=== PATIENT | male | born 2000 | race Caucasian/White ===

== ENCOUNTER 2023-04-30 08:00 | Outpatient (RCR) | payer OTHER, SELFPAY ==
--- NOTE | 2023-04-30 09:00 | BH.SGPN.GN ---
Behaviors/Verbalizations/Mental Status: [] Eye contact is good. Motor activity is appropriate. Appearance is casual. Speech is Appropriate. Mood is anxious. Affect is congruent. Thoughts are linear and logical. No evidence of psychosis. Reviewed daily check in sheet and no reports of suicidal ideations or intent. Client Response/Progress/Benefit: [] Pt was an active participant in group discussion. Attentive. This was pt's first day in IOP. Daily symptom tracker notes 3/5 for anxiety and 2/5 for depression and irritability. Also reports 1/5 for self-harm urges. He introduced himself to the group and shared that he entered [facility] to work on his anxiety and depression. Discussed the the impact of his social anxiety and depression on his life. Visibly anxious however was able to provided appropriate feedback to peers. Limited progress as this was his first day in IOP. Benefited from group support, encouragement, and feedback. Group welcomed him to the program, empathized with his struggles, and provided advice for his first day/week in IOP. Will continue in IOP to prevent decompensation, stabilize mood, and improve function. Narrative Note: []
--- NOTE | 2023-04-30 09:08 | BH.COMM_ITS ---
Communication Note Communication with Client Communication Note: Pt completed initial paperwork. No significant changes since pre-admission screening. Completed [place] Suicide Severity Rating Scale. Per CSSRS client is high risk due to recent suicide attempt when he attempted to suffocate himself with a pillow 4 weeks ago. Pt states he hasn?t had suicidal thoughts in three and a half weeks. Feels able to maintain safety. Pt states his dad does own a gun, but pt knows his dad keeps it locked up. Pt does not know where the gun safe is and does not know how to access it. Therapist provided lethal means counseling. Pt denies access to lethal items. Consulted with Dr. Raymond with plan to admit to IOP with hx of F33.2.
--- NOTE | 2023-04-30 10:15 | BH.SGPN.GN ---
Behaviors/Verbalizations/Mental Status: []Pt alert and oriented, casually dressed and groomed. Eye contact good. Motor activity appropriate. Speech within normal limits. Affect congruent, mood stressed. Thoughts linear, logical, no signs of hallucinations or delusions. Client Response/Progress/Benefit: []Pt receptive to session AEB contributing to discussion, as well listening attentively to others, and taking notes. Worked with group to brainstorm the positive and negative aspects of stress on physical and mental health. Group did well to identify the benefits of stress as well as the impact of distress on performance, relationships, and mental health. Pt identified their personal top stressors as: poor time management with his hobbies, unemployment, and school. Pt seemed to benefit from increased awareness of current stressors and impact stress has on mental health. First day of IOP tx. Recommended to continue IOP tx to prevent decompensation, improve daily functioning, and gain healthy coping skills. ? Narrative Note: []
--- NOTE | 2023-04-30 11:15 | BH.SGPN.GN ---
Behaviors/Verbalizations/Mental Status: []Eye contact is good. Motor activity is appropriate. Appearance is casual. Speech is Appropriate. Mood is anxious and dysthymic. Affect is congruent. Thoughts are linear and logical. No evidence of psychosis. Client Response/Progress/Benefit: []Pt first day in IOP tx, was an active participant in group discussions and experiential activity. Attentive during psychoeducation on the 4 A's (Avoid, adapt, alter, accept) of coping with stress as well as strategies to identify stressors in which one has no control, little control, or a great deal of control over. Shared that he would benefit most from working on avoid in regards to coping with stress of having difficulties balancing enjoyable activities with completing responsibilities. Was able to identify the connection between the experimental activity and utilization of stress management skills. Benefited from increased awareness of stress management strategies. Will continue in IOP to maintain safety, prevent decompensation, and to increase healthy coping skills. Narrative Note: []
== END 2023-05-01 23:59 ==
LOC: BHIOP 08:00
PROVIDERS: Referring Provider Psychiatry & Neurology Psychiatry; Visit Provider Psychiatry & Neurology Psychiatry
DX: F33.2 Major depressive disorder, recurrent severe without psychotic features (principal)
CPT/HCPCS: S9480; 90853

== ENCOUNTER 2023-05-04 07:20 | Outpatient (RCR) | payer OTHER, SELFPAY ==
--- NOTE | 2023-05-04 09:00 | BH.SGPN.GN ---
Behaviors/Verbalizations/Mental Status: [] Eye contact is good. Motor activity is appropriate. Appearance is casual. Speech is Appropriate. Mood is anxious. Affect is full. Thoughts are linear and logical. No evidence of psychosis. Reviewed daily check in sheet and no reports of suicidal ideations or intent. Client Response/Progress/Benefit: [] Pt was an active participant in group discussions. Attentive. Daily symptom tracker notes 25 for depression and 5 for anxiety. Emotion for today is tired. Shared mental health wins over the holiday stating that he managed through some very stressful and difficult situation without having a panic attack. I think I managed my anxiety OK. Appeared reluctant to verbalize this however insight that he utilized skills and reframed thoughts which was able to minimize the distress of his emotions. He shared stressors. Continues to struggles with anxiety, depression, and overall these continue to impact his functioning , however increase use of skills. Also benefits from group support and encouragement. Will continue in IOP to prevent decompensation, increase healthy coping, and improve functioning. Narrative Note: []
--- NOTE | 2023-05-04 10:10 | BH.SGPN.GN ---
ions/Mental Status: [] Eye contact is good. Motor activity is restless. Appearance is casual. Speech is Appropriate. Mood is anxious. Affect is congruent. Thoughts are linear and logical. No evidence of psychosis. Client Response/Progress/Benefit: [] Pt active participant AEB providing contributions throughout discussions and listened attentively to others. Participated in and was engaged during experiential activity. Engaged during interactive discussion on what failure means to the group in which peers identified that failure is ... not meeting expectations, not having a desired outcome, and not succeeding in a task. Group was able to identify how fear of failure can lead to inaction, complacency, pushing people away, poor self-care, and self-sabotage. Attentive during interactive discussion on the role that FOF plays in mental wellness, depression, anxiety, and growth. Able to connect the experiential activity to FOF. Benefited from increased awareness of how the role that FOF plays in mental health and decision-making. Will continue in IOP to decrease anxiety, increase emotion regulation, and prevent decompensation.
--- NOTE | 2023-05-04 11:15 | BH.SGPN.GN ---
Behaviors/Verbalizations/Mental Status: []Pt alert and oriented, casually dressed and groomed. Eye contact good. Motor activity appropriate. Speech within normal limits. Affect congruent, mood depressed. Thoughts linear, logical, no signs of hallucinations or delusions. Client Response/Progress/Benefit: [] Pt responded well to session, engaged in the experiential activity and attentive throughout group processing. Pt reported fear of failure has kept Pt from dating, riding a bike, and family events. Pt completed fear of failure worksheet and was able to identify thoughts and behaviors that reinforce personal fear of failure including self-isolation, perfectionism, and lack of confidence. Pt participated in group discussion regarding strategies to overcome fear of failure. Identified wanting to work on reminding himself that people do care about him. Appeared to benefit from increased knowledge of strategies to combat fear of failure and gaining self-awareness. Pt will continue IOP tx to prevent decompensation, improve daily functioning, and increase self-compassion. Narrative Note: []
--- NOTE | 2023-05-06 10:05 | BH.SGPN.GN ---
Behaviors/Verbalizations/Mental Status: [] Client alert and oriented, casually dressed and groomed. Eye contact good. Motor activity appropriate. Speech within normal limits. Affect congruent, mood anxious and euthymic. Thoughts linear, logical, no signs of hallucinations or delusions. Client Response/Progress/Benefit: [] Client was an active participant in activity and taking notes during group discussion and provided input in during group discussions.. Attentive during psychoeducation on coping skills, why people use unhealthy coping skills, and how to replace unhealthy coping skills. Group came up with list of negative coping skills that included substance use, avoidance, lashing out, and escaping from reality. Group discussed the effects of how negative coping skills can impact mental health in a negative way which included lack of positive supports. Client shared the importance internal and external coping skills. Benefited from increased understanding of unhealthy coping skills and the need for developing healthy interna and external coping skills. Client will continue IOP tx to increase positive self care, regulate emotions, and increase overall functioning. Narrative Note: []
--- NOTE | 2023-05-06 10:25 | BH.NA_ITS ---
Physical Data Vital Signs Pulse Rate: 84 Blood Pressure: 124/78 Height/Weight Height: 1.75 m Weight:: 104.326 kg Weight in Pounds: 230.0 lbs Current Medication Compliance Medication Compliance Do you take your medication as prescribed?: Yes Nutritional History Appetite Nutritional Instructions: Describe your appetite:: Fair Additional nutritional information:: Client states his routine for eating is 2 s mall meals a day and snacks in between. Client denies change in his appetite. Functional Assessment Sleep Pattern Describe any problems with sleeping: Client states he sleeps between 6-10 hours per night. Sensory/Communication Assess Vision Problems Do you have any vision problems?: Glasses Communication Problems Do you have difficulty understanding what people are saying?: No Medical Problems/History Gastrointestinal Conditions Gastrointestinal: Other (See comments) (IBS, GERD) Musculoskeletal Conditions Musculoskeletal: Other (See comments) (scolosis, skin excoriation disorder) Pain Assessment Do you have acute or chronic pain?: No Surgical History Surgical History Have you had any surgeries? If so, list type and date:: No Substance Abuse Substance Abuse Please describe substance abuse in the last 30 days:: Client denies alcohol, tobacco or substance use. Client states he drinks between 1 and 3 32oz caffeinated sodas per day. Mental Status Summary Mental Status Significant Findings/Observations on Appearance and Mood:: Client is alert and oriented x 4. Client is casually groomed. Client makes fair eye contact. Client's voice has normal rate and volume. Client has appropriate affect. Client makes logical associations. Client has normal processing. Client denies delusions/hallucinations. Client states he has some passive SI at times, but denies thoughts of methods since he talked to his counselor about SI in April. Suicide Assessment Suicidal Ideation Are you currently or have you been suicidal in the past?: Yes Suicidal Intentional Rating Scale (SIRS): Current suicidal thoughts/No plan/Contracts for safety (daily passive SI but denies intent/plan) Physician Notification Past Psychiatric History MH Treatment Hx Past Psychiatric Medications:: Prozac, Viibryd, Adderall, Abilify Age of first mental health symptoms: Client states he was first on medication for depression at age 16, but states he had symptoms many years prior. Client states he has had 2 suicide attempts in the past, hospitalization was not followed with either. Fall Risk Assessment Age Age: Less than 60 Mental Status Mental Status: Willing & able to ask for assistance when needed Physical Status Physical Status: No problems Impairments Impairments: None Elimination Elimination: Continent AND independent Gait or Balance Gait or Balance: Walks independently Hx of Falls History of falls in the past 6 months: No known history Medications/Substances Psychotropics:: Antidepressants Medications/substances used within the past 24 hours or ordered to administer: 1-2 of the medications/substances listed above Total Score Total Points:: 1 RN Summary of Impressions Impressions Recommendations Impressions: Psychiatric Issues: 1. Major depressive disorder, recurrent, severe without psychosis 2. Generalized anxiety disorder 3. 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 Rule out ADHD Level of Care How do the client's current symptoms and functional deficits support need for this level of care?: Client was referred to IOP after a session with his therapist where he voiced SI with thoughts of wrecking his car. Client states he has had some passive SI since then, but denies active SI or intent/plan and states the suicidal thoughts don't last long. Client states his biggest stressor is not being able to maintain employment. Client voices I feel like a failure. Client also endorses decreased concentration, decreased energy and anhedonia. IOP will promote gains and prevent further decompensation while providing social support and skills training.
[2023-05-06 10:49] VITALS: BP 124/78; PULSE 84
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
--- NOTE | 2023-05-06 13:21 | BH.DR.ITP ---
Initial Treatment Plan Patient Information Visit Information: ADMISSION DATE: EXPECTED LOS: 4-6 weeks Problems/Symptoms Problem #1:: Depression Symptom:: Sadness, fatigue, low motivation, decreased concentration, guilt, worthlessness, passive thoughts of Problem #2:: Anxiety Symptom:: Worry, rumination
--- NOTE | 2023-05-06 14:48 | BH.MTP ---
Master Treatment Plan Patient Information Program Physician:: Dr. Jessica Winchester Primary Therapist:: MATHEW Whiteside Psychiatric Diagnoses Psychiatric Diagnoses:: 1. Major depressive disorder, recurrent, severe without psychosis 2. Generalized anxiety disorder 3. 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 Rule out ADHD Diagnosis Code(s):: F 31.2 Estimated LOS Estimated LOS (in weeks):: 6 Problem/Goal #1 Problem/Goal #1 Stated Goal:: Client will reduce depressive symptoms, worthlessness, lack of concentration, and guilt associated with major depressive disorder. Description of Barriers: poor interpersonal skills, negative core beliefs, limited distress tolerance, and difficulties driving due to anxiety could all prevent consistent tx progress. Functional Impact: The patient is a 22-year-old male with a history of depression, anxiety and ADHD who was referred to the [facility] IOP program by his counselor due to worsening depression and anxiety impacting social and occupational functioning. The patient currently lives with his parents and and pets and they get along okay. Pt is in school online to get a bachelor's in writing (creative) and has 2 years left which pt reports is a stressor. Pt reports that he has been struggling to manage occupational stress of his most recent job at [employer] and had an emotional breakdown at work on April 09, 2023 after he was reprimanded at work. Reports unawareness of doing anything wrong in the workplace and felt he was unfairly treated. His biggest stressor currently is difficulty maintaining jobs and has had 3 jobs in the past year. Pt reports feeling like a failure and struggling with negative self-talk ultimately resulting in passive thoughts of driving his car off the road. Denies active plan or intent and reports his family and online friend group as protective factors. He endorses difficulty with social issues/cues and feels he may be autistic, though is not diagnosed. Shared difficulties with socialization has resulted in limited support and difficulties navigating interpersonal relationships. At time of intake, pt endorses depression, sadness, feeling numb, fatigue, worthlessness and guilt, low motivation, decreased concentration, and increased appetite. Reports anxiety with rumination, increased worry, and panic last on April 09. Due to pt sx impacting social, emotional, occupational functioning, pt recommended IOP tx. Objectives Objective #1: Stated Objective: Client will learn and utilize 2-3 healthy coping strategies to manage depressive symptoms as shown by reduced DSM-5 cross-cutting symptom measure score. Interventions: Therapist will help client identify triggers and warning signs of depression and will teach client various coping skills to manage client?s symptoms and give client tangible resources to use to regulate emotions. Discharge Criteria: Pt will be able to identify and report use of 2-3 coping skills for managing depressive sx. Pt will see a reduction in DSM-5 scores for depression as well. Target Date: 06/11/23 Review Date: 05/21/23 Objective #2: Stated Objective: Client will identify and replace 2-3 negative thinking patterns that reinforce depressive symptoms, impact self-esteem, and reinforce negative self-talk. Interventions: Therapist will help client identify distorted, negative beliefs about self and replace with more realistic, affirmative messages. Therapist will use CBT to help client increase insight to the connection between thoughts, emotions, and behaviors. Therapist will encourage client to practice thought challenging. Discharge Criteria: Pt will be able to identify and replace at least 2 negative thinking patterns that reinforce depressive sx. Target Date: 06/11/23 Review Date: 05/21/23 Problem/Goal #2 Problem/Goal #2 Stated Goal:: Client will reduce overall frequency, intensity, and duration of anxiety to improve functioning and improve mood stability. Description of Barriers: poor interpersonal skills, negative core beliefs, limited distress tolerance, and difficulties driving due to anxiety could all prevent consistent tx progress. Functional Impact: The patient is a 22-year-old male with a history of depression, anxiety and ADHD who was referred to the [facility] IOP program by his counselor due to worsening depression and anxiety impacting social and occupational functioning. The patient currently lives with his parents and and pets and they get along okay. Pt is in school online to get a bachelor's in writing (creative) and has 2 years left which pt reports is a stressor. Pt reports that he has been struggling to manage occupational stress of his most recent job at [employer] and had an emotional breakdown at work on April 09, 2023 after he was reprimanded at work. Reports unawareness of doing anything wrong in the workplace and felt he was unfairly treated. His biggest stressor currently is difficulty maintaining jobs and has had 3 jobs in the past year. Pt reports feeling like a failure and struggling with negative self-talk ultimately resulting in passive thoughts of driving his car off the road. Denies active plan or intent and reports his family and online friend group as protective factors. He endorses difficulty with social issues/cues and feels he may be autistic, though is not diagnosed. Shared difficulties with socialization has resulted in limited support and difficulties navigating interpersonal relationships. At time of intake, pt endorses depression, sadness, feeling numb, fatigue, worthlessness and guilt, low motivation, decreased concentration, and increased appetite. Reports anxiety with rumination, increased worry, and panic last on April 09. Due to pt sx impacting social, emotional, occupational functioning, pt recommended IOP tx. Objectives Objective #1: Stated Objective: Client will identify 2-3 anxiety triggers and 2 calming coping skills to reduce anxiety as shown by decreased DSM-5 cross cutting symptom measure scores. Interventions: Therapist will help client increase awareness of anxiety triggers and educate client on the ways anxiety impacts overall health. Therapist will teach client various calming and mindfulness strategies to promote emotional regulation and reduction of anxiety. Therapist will encourage client to implement healthy coping skills on a regular basis. Discharge Criteria: Client will reduce anxiety sx per DSM-5 score reduction as well as self-report. Client will be able to identify 2-3 triggers and healthy skills for managing these triggers. Target Date: 06/11/23 Review Date: 05/21/23 Objective #2: Stated Objective: Client will learn 2-3 techniques to better manage interpersonal relationships. Interventions: Through group and individual sessions, client will learn strategies to improve communication, resolve conflict, and increase emotional regulation to better manage interpersonal relationships. Therapist will also teach client about self-forgiveness, boundaries, and radical acceptance to help client heal from previous relationships. Discharge Criteria: Client will be able to identify and report effective use of at least 2 techniques to better manage his interpersonal relationships. Target Date: 06/11/23 Review Date: 05/21/23
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
--- NOTE | 2023-05-06 14:49 | BH.MDN ---
Multi-Disciplinary Note Note 45-min Individual: Time Started:: 11:18 Date: 05/06/23 Purpose of session/treatment goals addressed:: Purpose of session was to gather information on current symptoms and stressors, build rapport, and identify treatment goals for IOP. Eye Contact:: Good Motor Activity:: Appropriate Appearance:: Disheveled and Casual Speech:: Appropriate Mood:: Anxious and Dysthymic Affect:: Congruent Thoughts:: Logical, Other (at times appearing tangential) and No evidence of hallucinations/delusions noted Staff Interventions:: motivational interviewing, psychoeducation on: (anxiety maintenance cycles and safety behaviors), rapport building, strengths perspective, treatment planning and goal setting Client Response:: Client receptive of session and engaged throughout. He reported he is seeking treatment at the recommendation of his outpatient therapist, Kandis Love at [place] [id number], due to increased anxiety and depression resulting in client quitting his job and experiencing passive thoughts of driving his car off the road. Denies any current active SI, plan, or intent. Client reports that his job was one of his primary stressors and he often struggles with maintaining employment due to easily feeling overwhelmed in fast paced environments or when asked to complete several tasks at once. Shared that his employer had reprimanded client for something that he had not been aware he had done wrong and that when trying to explain himself his employer told him not to ?make excuses?. Client expressed this as a trigger and resulted in a panic attack while at work and ultimately quitting his job. 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 often complicating interactions with others and leading to unintentional conflict or client becoming easily angered. Did well to identify communication triggers resulting in anger sharing ?competitive speech?, ?not listening? (specifically when client is giving instruction), and ?having to have the last word?. Expressed a desire to improve his communication skills and better tolerate communication triggers to prevent emotion dysregulation and unnecessary conflict. Client went on to discuss goals of improving overall stress and anxiety management skills as he would like to feel more confident in social setting and eventual work his way up to dating. Shared additional stressors as managing interpersonal conflict with his dad and sister, as well as attending college for creative writing. Client is in the process of applying to receive services from [employer] to aid in finding a job that best fits his mental health needs. Risks/Concerns:: Client reports passive thoughts of denies active ideation, plan or intention. Denies any active SI, plan or intent as of this date 05/06/23. Reports his friends and family are protective factors. Future oriented Progress Toward Goals/Plan:: No progress noted given today is client's third day in treatment. Session focused on gathering background information, building rapport and identifying treatment goals. Client struggling with depression and anxiety and is hoping to learn new skills to prevent further decompensation. Client to continue IOP to increase healthy coping, stabilize moods, and prevent decompensation. Time Stopped:: 11:51
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
--- NOTE | 2023-05-08 10:10 | BH.SGPN.GN ---
Behaviors/Verbalizations/Mental Status: []Client alert and oriented, casually dressed and groomed. Eye contact good. Motor activity appropriate. Speech within normal limits. Affect congruent, mood anxious, euthymic. Thoughts linear, logical, no signs of hallucinations or delusions. Client Response/Progress/Benefit: []Client receptive to session AEB providing input throughout, listening attentively to others, and taking notes. Attentive throughout psychoeducation on the cognitive triangle and maintenance cycles. Worked on identifying own vicious cycle. Engaged in group discussion reviewing the impact of daily activities and behaviors in either reinforcing unhealthy maintenance cycles and depression or assisting in reducing symptoms (?down? vs ?up? activities). Client identified common ?down? activities they engage in as: not eating, staying in bed, spending the day all alone, and not changing clothes. Common ?Up? activities client identified included: cuddle pets, getting outside, walking, eating a good meal, and writing. Appeared to benefit from increased awareness of current behaviors and impact these have on mental health. Pt to continue IOP to increase healthy coping, improve confidence, and prevent decompensation.
--- NOTE | 2023-05-08 11:15 | BH.SGPN.GN ---
Behaviors/Verbalizations/Mental Status: []Pt alert and oriented, neatly dressed and groomed. Eye contact good. Motor activity appropriate. Speech within normal limits. Affect congruent, mood depressed. Thoughts linear, logical, no signs of hallucinations or delusions. Client Response/Progress/Benefit: []Pt responded well to session, attentive and engaged in activity. Group shared having patience and being willing to re-evaluate helped the group be success. Group discussed values and the benefits that knowing one's values can have on one's mental health. These included: increasing motivation, resolved cognitive dissonance, and less stress. Pt explored own values and identified friendship and physical health as their top two values. Pt set a goal to go swimming twice a week and reach out to his friends this week to live according to values. Pt appeared to benefit from exploring values and creating a weekly goal. Pt will continue IOP tx to prevent decompensation, improve daily functioning, and gain healthy coping skills. Narrative Note: []
--- NOTE | 2023-05-11 09:00 | BH.SGPN.GN ---
Behaviors/Verbalizations/Mental Status: []Pt alert and oriented, casually dressed and groomed. Eye contact good. Motor activity appropriate. Speech within normal limits. Affect congruent, mood spaced out. Thoughts linear, logical, no signs of hallucinations or delusions. Reviewed pt?s symptom tracker, no risk for suicidal ideation, plan, or intent as 05/11/23 Client Response/Progress/Benefit: []Pt responded well to session, attentive and engaged. Pt reports feeling spaced out this morning due to struggling with a lot of negative self-talk. Pt shared he feels he should be doing better and he often judges himself which then leads to not using healthy coping skills. The group offered support and ideas on thought challenging. Pt able to give himself credit for organizing a family event and for helping his dad recently. Pt appeared to benefit from group support and feedback. Pt will continue IOP tx to prevent decompensation, increase use of healthy coping skills, and improve daily functioning. Narrative Note: []
--- NOTE | 2023-05-11 10:15 | BH.SGPN.GN ---
Behaviors/Verbalizations/Mental Status: [] Eye contact is good. Motor activity is appropriate. Appearance is casual. Speech is Appropriate. Mood is euthymic. Affect is full. Thoughts are linear and logical. No evidence of psychosis. Client Response/Progress/Benefit: [] Pt was an active participant in group discussion. Attentive during psychoeducation. Participated during interactive discussion on types of support. Group identified several forms of support which included; friends, family, therapy, professionals, support groups, co-workers, social media, spirituality, medications, local agencies, etc. Pt Participated as group discussed the the importance of support which they identified leads to; accountability, can motivate, decreased loneliness, connection with others, improved relationships, increased self-confidence, can lessen one's stress and responsibilities, and is fun/ distracting. Patient identified the obstacles/barriers to seeking support and utilizing the support they currently have in place which included toxic people, loss, lack of trust, anxiety, over-reliance on others, past experiences, and fear of weakness Benefited from increased awareness of healthy supports and the importance of balanced support. Will continue in IOP to prevent decompensation, stabilize mood, and improve functioning. Narrative Note: []
--- NOTE | 2023-05-11 11:15 | BH.SGPN.GN ---
Behaviors/Verbalizations/Mental Status: []Client alert and oriented, casually dressed and groomed. Eye contact good. Motor activity appropriate. Speech within normal limits. Affect congruent, mood dysthymic and anxious. Thoughts linear, logical, no signs of hallucinations or delusions. Client Response/Progress/Benefit: [] Client was an active participant throughout AEB contributing to group discussion, participating in the activity, and taking notes. Client provided input during discussion on the types of support our supports can provide (social, emotional, tangible, and informational). Able to identify the types of support pt?s own support system provides for them. Client reported gaining awareness that they could benefit from more social and informational specific support. Shared this will help to provide him with gaining more information on healthy coping and communication skills to then improve his relationships/interactions with others as well. Client identified steps to achieve this as continue with IOP tx, research skills for himself, as well as spend more quality time with friends and family. Client seemed to benefit from identifying support areas client could benefit from improving. Recommended to continue IOP tx to increase healthy coping repertoire, promote mood stability, and improve overall functioning. Narrative Note: []
--- NOTE | 2023-05-12 09:00 | BH.SGPN.GN ---
Behaviors/Verbalizations/Mental Status: [] Eye contact is good. Motor activity is appropriate. Appearance is casual. Speech is Appropriate. Mood is anxious. Affect is congruent. Thoughts are linear and logical. No evidence of psychosis. Reviewed daily check in sheet and no reports of suicidal ideations or intent. Client Response/Progress/Benefit: [] Pt was an active participant in group discussion. Attentive. Daily symptom tracker notes 01/04 for depression. States I'm a little drained today but I'm OK. I just have a vague state of worry. States I can't identify any specific mental health win. He shared that one of his goals for treatment is to be more vulnerable with his support. Group discussion on managing the anxiety w/o specific trigger in which peers were able to identify grounding techniques which was beneficial to patient. Limited progress noted as pt struggled to identify any mental health wins and was distracted/ruminating on his anxiety this AM. Will continue in IOP to prevent decompensation, stabilize mood, and improve functioning. Narrative Note: []
--- NOTE | 2023-05-12 10:15 | BH.SGPN.GN ---
Behaviors/Verbalizations/Mental Status: [] Client alert and oriented, casually dressed and groomed. Eye contact good. Motor activity appropriate. Speech within normal limits. Affect congruent, mood euthymic. Thoughts linear, logical, no signs of hallucinations or delusions. Client Response/Progress/Benefit: [ ] Client active participant in group discussions. Attentive during psychoeducation on 4 types of conflict styles (Competing, Collaborating, Avoiding, and Accommodating). Worked with group to define conflict and identify how conflict is helpful. With peers identified barriers to addressing or managing conflict which included: not wanting to hurt others, lack of communication skills, and cognitive distortions. Client reported he tends to use accommodating conflict styles. Client reported this results in him living his life for others and feeling more depressed. Benefited from group due to increase insight and awareness of benefits to conflict, conflict styles, and obstacles to managing conflict. Will continue in IOP to improve distress tolerance, increase healthy coping, and prevent decompensation.
--- NOTE | 2023-05-12 11:15 | BH.SGPN.GN ---
Behaviors/Verbalizations/Mental Status: []Pt alert and oriented, casually dressed and groomed. Eye contact good. Motor activity appropriate. Speech within normal limits. Affect congruent, mood present. Thoughts linear, logical, no signs of hallucinations or delusions. Client Response/Progress/Benefit: [] Pt engaged in session AEB contributing to discussion and engaging in activity. Attentive during discussion on strategies for more effectively managing conflict in personal life. Pt participated in activity and did well to be assertive and collaborating in small group. Pt given handout on fair fighting rules. Pt indicated that pt is going to work on expressing feelings with words instead of shutting down. Pt feels he could do this by writing out what he wants to say. Appeared to benefit from gaining strategies to help Pt better manage conflict. Will continue IOP tx to reduce negative thinking patterns, improve daily functioning, and increase self-esteem. ?? Narrative Note: []
--- NOTE | 2023-05-12 11:29 | BH.MDN ---
Multi-Disciplinary Note Note 45-min Individual: Time Started:: 08:35 Date: 05/12/23 Purpose of session/treatment goals addressed:: To begin identifying and addressing communication barriers impacting pt's ability to socialize with others effectively. Eye Contact:: Good Motor Activity:: Appropriate Speech:: Appropriate and Pressured Mood:: Euthymic and Anxious Affect:: Congruent Thoughts:: Linear, Logical and No evidence of hallucinations/delusions noted Staff Interventions:: thought challenging, strengths perspective, taught coping skills (began discussion on healthy social skills) and other (provided pt with a thinking styles self-assessment quiz and began reviewing results, pt hw to continue to review outcomes to further discuss in next session) Client Response:: Pt receptive of session and willing to arrive to [facility] group early to meet for individual counseling session. Pt reports that his mother drove him here today as he has been struggling with sleep and felt spaced out when driving to group yesterday. [place]upe it would reduce stress and anxiety about maintaining alert while driving. Shared that overall he is enjoying the IOP program and peer support. Discussed struggling at times with feeling the tx environment reminds him of school which had been difficult socially for pt. Shared he felt people ?just tolerated me? and that he struggled with understanding appropriate boundaries creating conflict at times throughout high school. Noted trying to remind himself that ?I?m different and the environment is different? from these past negative experiences. Discussed pt?s goal of improving social communication skills and reviewed how pt feels he is doing with appropriate socialization in the group setting. Pt indicated feeling that in general he is doing well, but has recognized at times he struggles with interrupting others as he gets excited about sharing an idea and does not always have awareness that others may want to share or have more input to provide as well. Discussed implications this has had on his relationships and ability to effectively communicate outside the tx environment. Pt identified the potential for conflict or unintentionally invalidating another person?s input. Expressed that he has felt these ways when interrupted by others in the past and would like to work on not interrupting others. Discussed skills that could help pt in this area and pt identified a small goal of waiting several seconds to see if anyone else was going to speak in group first before providing input. Pt was additionally provided with a Thinking Styles self-assessment quiz which he completed prior to session. Began discussion on impacts of how personal thinking styles can impact effective communication and pt given homework to analyze his quiz results and begin reflecting on the personal impacts his identified thinking styles may have on his ability to establish and maintain healthy social relationships. Risks/Concerns:: Pt denies any suicidal ideation, plan, or intent as of this date 05/12/23 Progress Toward Goals/Plan:: Some progress noted. Pt reports connecting with tx environment and feels the supportive feedback or the shared group environment has been helpful as well. Pt reports trying to begin implementing the skills he is learning in group and expressed a desire to begin expanding his understanding of healthy grounding skills. Pt discussed continuing to struggle with identifying and understanding appropriate social skill behaviors and continues to express a desire to improve in this area. Continues to endorse depression, low motivation, loneliness, anxiety, worry, and poor concentration. Recommended continued IOP tx to improve healthy coping skill repertoire, improve anxiety management and distress tolerance, as well as promote mood stability. Time Stopped:: 09:18
--- NOTE | 2023-05-14 09:05 | BH.SGPN.GN ---
Behaviors/Verbalizations/Mental Status: [] Eye contact is good. Motor activity is appropriate. Appearance is casual. Speech is Appropriate. Mood is depressed. Affect is congruent. Thoughts are linear and logical. No evidence of psychosis. Reviewed daily check in sheet and no reports of suicidal ideations or intent. Client Response/Progress/Benefit: [] Pt was an active participant in group discussion. Attentive. Daily symptom tracker notes 01/04 for depression. Pt shared that he is continuing to work on his treatment goals of being more open and vulnerable. States I;m opening up more to people in my life. He perceives himself as a burden to others I'm a burden to everyone by just existing. Went to discuss his thoughts that if he asked for help or for anything he feels like more of a burden. Shared that he is making a conscious effort not to isolation Even if I'm on my phone I try to be at least around others. In the past he would isolate which would lead to rumination, negative thoughts, and decompensation. Progress noted per pt report as he is practicing skills and challenging past perspectives. Benefited from group support, encouragement, and feedback. Will continie in IOP to prevent decompensation, stabilize mood, and improve functioning. Narrative Note: []
--- NOTE | 2023-05-14 10:10 | BH.SGPN.GN ---
Behaviors/Verbalizations/Mental Status: []Pt alert and oriented, neatly dressed and groomed. Eye contact good. Motor activity appropriate. Speech within normal limits. Affect congruent, mood sad. Thoughts linear, logical, no signs of hallucinations or delusions. Client Response/Progress/Benefit: []Pt was an active participant in group discussions and activity. Attentive during psychoeducation. Pt along with peers were able to identify several negatives on the picture given to the group. Pt and peers also identified positives in the picture and made the connection that finding positives is much more difficult. Interactive discussion on the definition of perspective, how perspective is formed, and why perspective is important in treatment. Pt along with peers also identified that perspective can either motivate and encourage treatment or be a barrier to receiving help. Pt shared he started the day in a negative perspective, but being at IOP helps pt combat his negative thoughts. Pt stated when he is more hopeful and positive, he is less likely to isolate. Will continue in IOP to stabilize moods, reduce negative self-talk, and improve daily functioning. Narrative Note: []
--- NOTE | 2023-05-14 11:10 | BH.SGPN.GN ---
Behaviors/Verbalizations/Mental Status: []Pt alert and oriented, neatly dressed and groomed. Eye contact good. Motor activity appropriate. Speech within normal limits. Affect congruent, mood euthymic. Thoughts linear, logical, no signs of hallucinations or delusions. Client Response/Progress/Benefit: []Pt was attentive and contributed to small group discussion. Pt completed strengths exploration worksheet, identifying expressiveness, wisdom, and love of learning as personal strengths. Pt able to acknowledge how these strengths are helping pt and can continue to help pt in mental health journey. Pt worked with group to identify strategies that can help increase utilization of personal strengths and how to challenge one?s perspective in general. Pt identified wanting to work on asking himself questions to help challenge perspective. Benefited from identifying personal strengths and strategies for enhancing use of identified strengths. Pt to continue IOP tx to promote mood stability, reduce negative self-talk, and improve daily functioning. ? Narrative Note: []
--- NOTE | 2023-05-19 09:00 | BH.SGPN.GN ---
Behaviors/Verbalizations/Mental Status: [] Eye contact is good. Motor activity is appropriate. Appearance is casual. Speech is Appropriate. Mood is euthymic. Affect is full. Thoughts are linear and logical. No evidence of psychosis. Reviewed daily check in sheet and no reports of suicidal ideations or intent. Client Response/Progress/Benefit: [] Pt was an active participant in group discussions. Attentive. Daily symptom tracker notes 11/06 for depression and anxiety. Pt shared a mental health win over the weekend as he was able to just enjoy myself while at a family event. In the past he would often focus on negatives i just had a predisposition for the negative. This predisposition lead to negative automatic thoughts, ruminations, worry, and irritability which made social events very challenging. It would seem that this would occur during his previous jobs as well. I made a conscious effort to focus on the present. Utilized mindfulness skills and thought reframing which was beneficial. I was able to live in the moment. Emotion for today is neutral. Progress noted per pt report as his is learning and implementing new coping skills. Will continue in IOP to prevent decompensation, stabilize mood, and improve functioning. Narrative Note: []
--- NOTE | 2023-05-19 10:10 | BH.SGPN.GN ---
Behaviors/Verbalizations/Mental Status: []Eye contact is good. Motor activity is appropriate. Appearance is casual. Speech is Appropriate. Mood is depressed. Affect is congruent. Thoughts are linear and logical. No evidence of psychosis. Client Response/Progress/Benefit: []Pt was an active participant in group discussions. Engaged and provided feedback along with peers on defining anxiety. Along with peers, pt worked to identify the benefits of anxiety. Participated during interactive discussion on how anxiety impacts one physically, cognitively, and behaviorally. Completed worksheet on how anxiety impacts pt physically, cognitively, and behaviorally. Pt shared physically pt experiences finger picking, tightness, and shaking. Benefited from increased insight into anxiety's benefits and how diagnosable anxiety impacts functioning. Will continue in IOP tx to reduce negative thinking patterns, improve daily functioning, and increase emotional regulation skills. Narrative Note: []
--- NOTE | 2023-05-19 11:10 | BH.SGPN.GN ---
Behaviors/Verbalizations/Mental Status: []Pt alert and oriented, casually dressed and groomed. Eye contact good. Motor activity appropriate. Speech within normal limits. Affect congruent, mood euthymic. Thoughts linear, logical, no signs of hallucinations or delusions. Client Response/Progress/Benefit: []Pt was an active participant in group discussion AEB providing contributions throughout group and listening attentively to others. Attentive during psychoeducation on mindfulness and ways to utilize mindfulness techniques to improve anxiety management. The group practiced deep breathing and the 5-senses during session. Engaged and attentive during group brainstorm of healthy anxiety reduction skills including thought challenging and behavioral changes. Appeared to benefit from practicing in the moment coping skills and increasing repertoire of anxiety management skills. Pt selected wanting to work on practicing mindfulness daily to help practice relaxation and decrease anxiety. Pt will continue IOP tx to prevent decompensation, continue use of healthy coping skills, and challenge distorted thoughts.
--- NOTE | 2023-05-21 09:02 | BH.SGPN.GN ---
Behaviors/Verbalizations/Mental Status: []Pt alert and oriented, casually dressed and groomed. Eye contact fair to good. Motor activity appropriate. Speech within normal limits. Affect congruent, mood dysthymic. Thoughts linear, logical, no signs of hallucinations or delusions. Reviewed pt?s symptom tracker, no reported suicidal ideation, denies plan, or active intent as of 05/21/23. Client Response/Progress/Benefit: [] Pt responded well to session, open to contributing with group and engaged. Pt reports feeling anxious this morning as he has to go to court next week for a missed jury duty notice. Shared worry about being selected and not being able to focus on the trial. Several group participants provided supportive feedback and encouragement which pt appeared to benefit from and reduce his overall anxiety. Pt did well to identify current mental health wins which included grilling hotdogs for his family and neighbors in celebration of [employer] . Additional win noted as going to bed at a ?decent time? which he shared he often struggles with. Identified use of opposite action to successfully do so. Pt will continue IOP tx to promote mood stability, reduce anxiety, and continue to improve functioning. Narrative Note: []
--- NOTE | 2023-05-21 10:10 | BH.SGPN.GN ---
Behaviors/Verbalizations/Mental Status: [] Eye contact is good. Motor activity is appropriate. Appearance is casual. Speech is Appropriate. Mood is depressed. Affect is congruent. Thoughts are linear and logical. No evidence of psychosis. Client Response/Progress/Benefit: [] Pt was an active participant in group discussion. Attentive during psychoeducation and participated during interactive discussion in which members identified characteristics of individuals with a Fixed Mindset. Characteristics included; avoids challenges, fear of failure, defensive, avoids criticisms, give up easily, and fear of trying new things. Participated and engaged in experiential group activity in which therapist assigned a task to the group that seemed impossible causing fixed mindset responses. Through group interactions and therapist assistance pt was able to determine task was possible. Able to see connection between activity and Fixed vs Growth mindset. Benefited from increased awareness of fixed mindset and how this can impact mental health. Will continue in IOP to prevent decompensation, increased healthy coping skills, and improve functioning. Narrative Note: []
--- NOTE | 2023-05-21 11:10 | BH.SGPN.GN ---
Behaviors/Verbalizations/Mental Status: []Pt alert and oriented, casually dressed and groomed. Eye contact good. Motor activity appropriate. Speech within normal limits. Affect congruent, mood euthymic. Thoughts linear, logical, no signs of hallucinations or delusions. Client Response/Progress/Benefit: []Pt was an active participant during activity and discussion AEB providing some input, connecting with peers, as well as taking notes throughout. Pt did well to engage as group worked on identifying characteristics and benefits of adopting a growth mindset. Worked with fellow participants in reframing the example fixed thoughts into growth mindset thoughts. Reframed personal fixed thought of ?I can't get better? by using growth mindset perspective that he problem solving and asking for help are strategies that can make him feel better. Benefitted from discussing benefits of growth mindset and brainstorming strategies for prompting growth-mindset. Pt appeared to benefit from working in small groups to challenge own thoughts and help peers. Pt will continue IOP tx to increase healthy coping, challenge distorted thoughts, and further prevent decompensation.
--- NOTE | 2023-05-22 09:00 | BH.SGPN.GN ---
Behaviors/Verbalizations/Mental Status: [] Eye contact is good. Motor activity is appropriate. Appearance is casual. Speech is Appropriate. Mood is depressed. Affect is congruent. Thoughts are linear and logical. No evidence of psychosis. Reviewed daily check in sheet and no reports of suicidal ideations or intent. Client Response/Progress/Benefit: [] Participated at times. Attentive. Emotions for today is ?defeated?. Shared that his mental health win was that ? I drove myself here today?. Pt?s family has been driving him to IOP due to his anxiety and overall struggles with mood. Reports being lower and more depressed today noting that since starting IOP his anxiety has decreased however his depression has increased. ? Maybe I?ve just been to focused on my anxiety?. The group provided support, encouragement, and feedback which was beneficial. Will continue in IOP to prevent decompensation, stabilize mood, increase healthy coping, and to improve functioning. Narrative Note: []
--- NOTE | 2023-05-22 09:43 | BH.MDN ---
Multi-Disciplinary Note Note 45-min Individual: Time Started:: 08:30 Date: 05/22/23 Purpose of session/treatment goals addressed:: Purpose of session was to address tx plan goal #1. Eye Contact:: Good Motor Activity:: Appropriate Appearance:: Casual Speech:: Appropriate Mood:: Depressed Affect:: Congruent Thoughts:: Linear, Logical and No evidence of hallucinations/delusions noted Staff Interventions:: thought challenging, CBT techniques, strengths perspective and taught coping skills (gratitude practice) Client Response:: Pt receptive of session and willing to arrive to IOP group early to meet for individual counseling session. Pt reports that he had not completed the homework from previous session, as he has been struggling with low motivation. Pt shared that he was able to successfully resolve a recent stressor of receiving a jury duty summons and has been experiencing a significant reduction in anxiety as a result. Pt reports however noticing an influx in depressive sx. Shared struggling with not sleeping well at night and wanting to sleep for the remainder of the day following days he attends IOP tx. Reports feeling disconnected from reality and spending much of his time engaged in ?maladaptive daydreaming?. Connected with discussion normalizing an increased awareness of depression once anxiety begins to subside and pt reported that eh usually makes his anxiety the primary focus of concern when experiencing anxious sx. Discussed the impact of grounding techniques on beginning to feel more connected with himself and his surroundings. Pt reports he has not found traditional grounding techniques to be helpful in the past. Receptive of discussion on utilizing mindfulness and gratitude as a means of reconnecting with the moment and being able to begin shifting his focus to more positive thoughts. Pt reported wanting to try keeping a daily gratitude journal to aid in perspective shifting and help hold him accountable as well. Additionally, pt discussed finances as a major stressor and increasing feelings of hopelessness. Shared that he wants to pursue a disability work assistance program but has not yet taken the steps to begin doing so. 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 Therapist aided pt in navigating his [employer]?s website to find the appropriate contact information and supported pt as he typed an email to begin the process. Risks/Concerns:: Pt denies any suicidal ideation, plan, or intent as of this date 05/22/23 Progress Toward Goals/Plan:: Some progress noted. Pt reports using skills to aid in addressing and beginning to reduce anxiety levels. He is reaching out to supports, using breaks and deep breathing to aid in emotion regulation, and setting small goals for himself. Pt however continues to report depressive sx of low motivation, hopelessness, and feeling disconnected. Receptive of learning skills for improving perspective challenging and using mindfulness to reconnect with the present. Recommended continued IOP tx to improve healthy coping skill repertoire, improve mood management, reduce distorted thinking, and continue to promote healthy coping. Time Stopped:: 09:14
--- NOTE | 2023-05-22 10:15 | BH.SGPN.GN ---
Behaviors/Verbalizations/Mental Status: []Pt alert and oriented, casually dressed and groomed. Eye contact good. Motor activity appropriate. Speech within normal limits. Affect congruent, mood depressed. Thoughts linear, logical, no signs of hallucinations or delusions. Client Response/Progress/Benefit: []Pt was an active participant during small group discussions. Attentive during psychoeducation on the six types of boundaries. Pt along with peers contributed to interactive discussion on defining what a boundary is and group identified challenges to setting boundaries. Pt discussed personal barriers of guilt and fear of being disliked. Pt?s group also identified the benefits of boundary setting which included ?preventing resentment and self-advocacy.? Pt contributed during his small group discussion. benefited from increased awareness and insight on the importance/benefit to setting health boundaries. Will continue IOP tx to prevent decompensation, combat distorted thinking patterns, and improve daily functioning. Narrative Note: []
--- NOTE | 2023-05-22 11:15 | BH.SGPN.GN ---
Behaviors/Verbalizations/Mental Status: []Pt alert and oriented, casually dressed and groomed. Eye contact good. Motor activity appropriate. Speech within normal limits. Affect congruent, mood depressed. Thoughts linear, logical, no signs of hallucinations or delusions. Client Response/Progress/Benefit: []Pt remained an active participant AEB providing contributions to group discussion, listening attentively to others, and engagement in small group discussion. Pt attentive during psychoeducation on the different boundary styles. Pt did well to work within the small group on identifying strategies for establishing and maintaining healthy boundaries. Pt identified wanting to work on improving his emotional boundaries by taking steps to more consistently communicate his emotions as well as emotional needs. Appeared to benefit from increased awareness of boundary styles and strategies to improve setting boundaries. Will continue IOP tx to increase consistent use of healthy coping skills, challenge distortions and improve communication, and prevent decompensation. Narrative Note: []
--- NOTE | 2023-05-25 15:33 | BH.MTP_ITS ---
Treatment Plan Review Demographics Date of Admission:: 04/30/23 Date of Treatment Plan Review:: 05/25/23 Admitting Diagnoses:: 1. Major depressive disorder, recurrent, severe without psychosis 2. Generalized anxiety disorder 3. 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 Rule out ADHD Current Diagnoses:: 1. Major depressive disorder, recurrent, severe without psychosis 2. Generalized anxiety disorder 3. 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 Rule out ADHD Patient Status Patient's Response to Treatment:: Pt has responded well to treatment AEB pt mostly consistently attending IOP sessions, missing only twice due to sickness, and reduction of overall DSM-5 symptoms by 24% since admission. Pt contributes well during individual sessions and is actively engaged during group sessions, despite initial anxiety about the group environment. Pt applies coping skills outside of IOP, reports improved use of radical acceptance, as well as reports overall mood and functioning have improved. Status of Current Problems and Symptoms: Pt's symptoms have begun to resolve since admission, but pt is gaining more willingness to begin communicating more openly with others, as well as reports increased insight to his mental health symptoms and triggers which has been causing some distress. Additionally, shared improved ability to manage sx of anxiety has highlighted his depressive sx and he is more acutely aware of times he is experiencing negative thoughts, apathy, or low motivation. Pt can continue to work on combatting distortions, improving self-care, improving use of in the moment anxiety management skills, and increasing interpersonal communication and conflict resolution skills. Progress Problem #1: Problem Name:: Depression, worthlessness, lack of concentration, guilt Status of Goals:: Objective 1- in progress. Pt has seen a slight influx in symptoms of depression since admission. Provided insight that he believes the recent reduction in anxiety sx has increased his insight into his negative thought patterns and depression maintenance cycles, resulting in pt being more acutely aware of depressive sx. Pt also self-reports struggling to balance socialization with other forms of self-care and tends to feel emotionally burnt out when scheduling too many social events at one time. Pt is working on identifying behavioral activation ?down? and ?up? activities to increase awareness of what daily activities he can avoid or engage in to continue to promote improved mood. Obj 2- Pt has increased awareness of his negative thought patterns and distortions reinforcing depression. He however struggles with consistently identifying and challenging these thought distortions. Will continue to work on in tx. Team Recommendations:: Pt is encouraged to continue working on this tx goal and to continue working on this with his future outpatient therapist. Pt wants to continue to challenge himself to use opposite action to engage in hobbies and interests on a more consistent basis. Problem #2: Problem Name:: Anxiety, avoidance, and panic attacks Status of Goals:: Objective 1-complete with ongoing work encouraged. Pt?s DSM-5 scores for anxiety have decreased by 57% since admission and pt reports increasing confidence in his ability to identify warning signs and triggers, as well as is beginning to more consistently implement healthy coping skills. Pt continues to struggle with in the moment distress tolerance, though is improving in this area and more consistently asking for help to aid in challenging avoidance safety behaviors. Objective 2- in progress. Pt is actively working with therapist on better identifying healthy vs. unhealthy interpersonal communication skills. He reports improved willingness to engage in social situations and practice skills learned. Continues to struggle with understanding appropriate boundaries at times. Team Recommendations:: Treatment tx encourages pt to continue working on this treatment goal to further reduce avoidance, increase self-confidence and mastery, and gain positive feedback. Pt encouraged to continue practicing self- compassion when faced with struggles when using healthy interpersonal communication skills.
--- NOTE | 2023-05-29 09:05 | BH.SGPN.GN ---
Behaviors/Verbalizations/Mental Status: [] Eye contact is good. Motor activity is appropriate. Appearance is casual. Speech is Appropriate. Mood is depressed. Affect is congruent. Thoughts are linear and logical. No evidence of psychosis. Reviewed daily check in sheet and no reports of suicidal ideations or intent. Client Response/Progress/Benefit: [] Pt was an active participant in group discussions. Attentive. Daily symptom tracker notes. 11/06 for depression and anxiety. Pt apologized for missing past 2 IOP sessions stating I was sick all week. Yesterday I stated to feel like I was getting back on track. Shared that physical illness impacted his mental health as he was feeling helpless and useless and it was difficult to process emotions. Illness caused decreased motivation and energy. I felt really low. Less active with increased isolation. Shared it was a struggle to utilize internal and external coping skills while sick. Emotion for today is grateful. Benefited from group support, encouragment, and feedback. Will continue in IOP to prevent decompensation, stabilize mood, and increase healthy coping. Narrative Note: []
--- NOTE | 2023-05-29 10:03 | BH.SGPN.GN ---
Behaviors/Verbalizations/Mental Status: [] Client alert and oriented, neatly dressed and groomed. Eye contact good. Motor activity appropriate. Speech within normal limits. Affect full, mood euthymic. Thoughts linear, logical, no signs of hallucinations or delusions Client Response/Progress/Benefit: [] Client was an active participant in group discussion and experiential activity. Attentive during psychoeducation on resilience. Participated in interactive discussion with peers on the definition of resilience and where it comes from. Group identified that resiliency can be impacted by; past experiences, physical and mental health status, and supports.. Able to relate experiential activity of group juggle to topics of resilience. Worked well with peers in small group in which they identified factors that contribute to resilience. Client provided many connections throughout group and discussed how growing resiliency comes from going through hard things and being able to utilize skills through the adversity. Benefited from increased awareness of resilience and the factors that contribute to building resilience. Will continue in IOP to prevent decompensation and increase emotional regulation skills. Narrative Note: []
--- NOTE | 2023-05-29 11:13 | BH.SGPN.GN ---
Behaviors/Verbalizations/Mental Status: [] Client alert and oriented, neatly dressed and groomed. Eye contact good. Motor activity appropriate. Speech within normal limits. Affect full, mood euthymic. Thoughts linear, logical, no signs of hallucinations or delusions Client Response/Progress/Benefit: [] Client responded well to session AEB completing the resilience worksheet provided. Client actively participated in the discussion and worked cooperatively with group to identify strategies to enhance each of the components discussed. Client reports belief they already use resilience trait of ?making connections? Client discussed that they could work on nurturing a positive view of themselves. Client indicated that they plan to ask for validation from supports when feeling they need it when he cannot give it to themselves. Client seemed to benefit from discussing strategies for improving personal resilience and identifying resilience traits client already possesses. Will continue IOP tx to increase self-worth and increase overall functioning. Narrative Note: []
== END 2023-06-01 23:59 ==
LOC: BHIOP 07:20
PROVIDERS: Referring Provider Psychiatry & Neurology Psychiatry; Visit Provider Psychiatry & Neurology Psychiatry
DX: F31.2 Bipolar disorder, current episode manic severe with psychotic features (principal); F41.1 Generalized anxiety disorder
CPT/HCPCS: S9480; 90834; 90853

== ENCOUNTER 2023-06-02 07:16 | Outpatient (RCR) | payer OTHER, SELFPAY ==
[2023-06-02 00:22] VITALS: BP 124/78; PULSE 84
--- NOTE | 2023-06-02 09:05 | BH.SGPN.GN ---
Behaviors/Verbalizations/Mental Status: [] Pt alert and oriented, neatly dressed and groomed. Eye contact good. Motor activity appropriate. Speech within normal limits. Affect congruent, mood anxious. Thoughts linear, logical, no signs of hallucinations or delusions. Reviewed pt?s symptom tracker, no risk for suicidal ideation, plan, or intent 06/02/23 Client Response/Progress/Benefit: []Pt responded well to session, attentive and engaged. Pt reports feeling frazzled this morning as pt feels that he has been socializing which is positive, but emotionally draining. Pt stated he wants to work on finding a better balance of hermit time and human time. Pt's other mental health win today includes going to the grocery store, spending quality time with family, and having a lot laughter lately. Pt appeared to benefit from reflecting on their application of coping skills. Pt will continue IOP tx to promote mood stability, further improve self-confidence, and promote gains. Narrative Note: []
--- NOTE | 2023-06-02 10:05 | BH.SGPN.GN ---
Behaviors/Verbalizations/Mental Status: [] Eye contact is good. Motor activity is appropriate. Appearance is casual. Speech is Appropriate. Mood is anxious. Affect is congruent. Thoughts are linear and logical. No evidence of psychosis Client Response/Progress/Benefit: [] Pt was an active participant in group discussions. Attentive during psychoeducation on 4 Communication Styles (Passive, Passive-Aggressive, Aggressive, Assertive). Convened in small group and participated during interactive discussion on benefits and disadvantages of each communication style. Majority of this group was based in introducing and educating on communication styles. Pt believes that he switches between passive and aggressive. Benefited from increased education and awareness on communication styles and their impact on relationships/mental health. Will continue in IOP to prevent decompensation, stablize mood, increase healthy coping, and improve functioning. Narrative Note: []
--- NOTE | 2023-06-02 11:10 | BH.SGPN.GN ---
Behaviors/Verbalizations/Mental Status: []Client alert and oriented, casually dressed and appropriately groomed. Eye contact good. Motor activity appropriate. Speech WNL. Affect congruent, mood euthymic. Thoughts linear, logical, no signs of hallucinations or delusions. Client Response/Progress/Benefit: []Client responded well to session AEB client listening attentively to others and providing input during group discussion on the pay offs and costs of the different communication styles. Client able to connect how current communication style impacts mental health. Client engaged in activity, used assertive communication throughout in order to accomplish task. Connected with peers comments about importance of using assertive communication. Client shared he struggles with expresses his feelings leading him to deflect or accuse others. Client stated he wants to work on using I statements to express himself. Client seemed to benefit from increasing awareness of healthy strategies to improve communication. Will continue IOP tx to increase healthy coping, challenge distorted thoughts, and prevent decompensation.
--- NOTE | 2023-06-04 09:00 | BH.SGPN.GN ---
Behaviors/Verbalizations/Mental Status: [] Pt alert and oriented, neatly dressed and groomed. Eye contact good. Motor activity appropriate. Speech within normal limits. Affect congruent, mood euthymic. Thoughts linear, logical, no signs of hallucinations or delusions. Reviewed pt?s symptom tracker, no risk for suicidal ideation, plan, or intent 06/04/23 Client Response/Progress/Benefit: []Pt responded well to session, attentive and receptive to feedback. Pt reports feeling proud this morning and shared that overall he is functioning better and he is recognizing increase in social activities. Pt listed several mental health wins including spending time with his family, cooking, helping his nephew manage emotions, and reaching out to [employer]. Pt stated he is happy to be doing these things, but it is also a stressor. Pt reflected on what a healthy balance would look like and pt shared human time and hermit time. Pt appeared to benefit from connecting with peers and challenging perspective. Pt will continue IOP tx to promote mood stability, further increase self-care, and reduce negative thinking patterns. Narrative Note: []
--- NOTE | 2023-06-04 09:21 | BH.MDN ---
Multi-Disciplinary Note Note 30-min Individual: Time Started:: 08:27 Date: 06/04/23 Purpose of session/treatment goals addressed:: Purpose of session was to address treatment plan goal #1. Eye Contact:: Good Motor Activity:: Appropriate Appearance:: Casual Speech:: Appropriate Mood:: Dysthymic Affect:: Congruent Thoughts:: Linear, Logical and No evidence of hallucinations/delusions noted Staff Interventions:: thought challenging, motivational interviewing, CBT techniques, mindfulness skills and taught coping skills Client Response:: Pt receptive of session, actively engaged throughout. Reports feeling ?frazzled? today as he has been busier than usual over the past few days. Discussed that these were all positive events and described getting his hair cut, spending time with family for his mother?s birthday, as well as speaking with the work assistance disability program about receiving services. 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 Pt shared he has been putting this off due to fear of being rejected and not knowing what exactly to expect. Receptive of discussion on using avoidance as a safety behavior and impacts avoidance may have on maintaining anxiety. Pt noted plans to contact his university accessibility office this afternoon and asked if this therapist would contact him later in the day to help hold him accountable. Discussed ongoing struggles with depression and shared that he is not sure what is contributing to this as he has been making efforts to socialize and practice skills. Receptive of discussion reviewing common ?down? and ?up? activities impacting mental health and mood. Pt able to recognize various ?down? activities he struggles with such as staying in bed or isolating and worked with therapist to identify ?up? activities he can engage in as well. Worked with therapist to create a list pt can hang in his room to help remind him of these activities. Pt identified playing with his pets, going for a walk, and practicing French as activities he thinks would aid in improving his mood throughout the day. Identified a goal to try and walk at least 3 days this week. Risks/Concerns:: Pt denies any suicidal ideation, plan, or intent as of this date 06/04/23. Future oriented and reports his family and goals for his future as protective factors. Progress Toward Goals/Plan:: Some progress noted. Pt reports reduced anxious sx and improved ability to challenge his perspective and manage stressors when they occur. Reduced irritability and improved socialization as well. Pt reports that he has gained increased insight into his distorted thought patterns as well. Now that pt's anxiety has reduced, he is expressing an increased awareness of depressive sx and is struggling with consistent engagement in hobbies and interests. Pt receptive of creating small behavior activation goals to begin working on this. Will continue IOP tx to further improve consistent skill application, continue to work on challenging thought distortions and prevent decompensation. Time Stopped:: 09:02
--- NOTE | 2023-06-04 10:10 | BH.SGPN.GN ---
Behaviors/Verbalizations/Mental Status: [] Eye contact is good. Motor activity is appropriate. Appearance is casual. Speech is Appropriate. Mood is euthymic. Affect is congruent. Thoughts are linear and logical. No evidence of psychosis. Client Response/Progress/Benefit: [] Pt was an active participant in group discussion. Attentive during psychoeducation on Problem-Solving in the Moment Protocol. Participated in group experiential activity. Pt provided feedback during interactive group discussion in which pt and peers worked through an example of a problem (Managing Anxiety) in which they identified a goal (minimizing anxiety) and identified barriers. Barriers identified included fear, past experiences, lack of motivation, external obstacles, and stigma. During the experiential activity pt worked with peers to problem solve using the Problem Solving in the Moment Protocol. Group was able to complete the activity and pt was able to practice in the moment problem-solving and make connections between problem-solving for activity and in real-life situations. Increased awareness of problem-solving strategies. Will continue in IOP to continue use of healthy coping, challenge distorted thoughts, and prevent decompensation.
--- NOTE | 2023-06-04 11:10 | BH.SGPN.GN ---
Behaviors/Verbalizations/Mental Status: []Pt alert and oriented, casual dress, hygiene tended to. Eye contact good. Motor activity WNL. Speech appropriate rate and tone. Affect constricted, mood anxious and euthymic.? Thoughts linear, logical, no signs of hallucinations or delusions. Client Response/Progress/Benefit: []Pt engaged in session as evidenced by listening to others and providing input throughout. Pt completed problem solving example with group and identified a goal they want to work on. Goal identified as: improving overall sense of fulfillment. Pt?s barriers included: procrastination, lack of motivation, forgetfulness, stress. Pt also identified steps they could take such as creating and following a set schedule with small goals, have a support help with engage pt in meaningful conversations, and remind himself to engage in activities he enjoys such as baking. Pt seemed to benefit from learning about problem solving methods and rehearsing problem-solving skills in the moment. Pt will continue IOP tx to promote mood stability, improve stress management, and further reduce negative thinking. Narrative Note: []
--- NOTE | 2023-06-05 09:05 | BH.SGPN.GN ---
Behaviors/Verbalizations/Mental Status: [] Eye contact is good. Motor activity is appropriate. Appearance is casual. Speech is Appropriate. Mood is euthymic. Affect is full. Thoughts are linear and logical. No evidence of psychosis. Reviewed daily check in sheet and pt reports 5 for suicidal thoughts and 1/5 for intent. Slightly elevated we monitor and check in with patient. Client Response/Progress/Benefit: [] Pt was an active participant in group discussions. Attentive. Daily symptom tracker notes 11/06 for anxiety, depression, irritability, and self-harm urges. Shared with the group that he started to write again. Shared that creative writing was his passion however he has not done this in ?awhile? mainly due to mental health struggles. Increased motivation as he helped support with household tasks. Stressors noted to be related to finances as he has not been able to maintain a job due again to mental health and social skills struggles. He has goal to get linked with job counselor. Emotion for today is ?burned out?. Progress noted due to increased motivation, energy, and pleasure in activities. Will continue in IOP to prevent decompensation, stabilize mood, and improve functioning. Narrative Note: []
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
--- NOTE | 2023-06-05 11:10 | BH.SGPN.GN ---
Behaviors/Verbalizations/Mental Status: [] Client alert and oriented, casually dressed and groomed. Eye contact good. Motor activity appropriate. Speech within normal limits. Affect congruent, mood euthymic, anxious. Thoughts linear, logical, no signs of hallucinations or delusions. Client Response/Progress/Benefit: [] Client responded well to session, engaged and taking notes. Worked with group to identify characteristics of healthy and unhealthy relationships. Attentive during psychoeducation about characteristics of healthy, unhealthy, and abusive relationships. Client stated within their current relationships he does well with enjoying personal time apart and not blaming. Client reported an area he would like to improve in is equality. Client shared he could so by working to communication more consistently with supports. Appeared to benefit from identifying area client wants to work on to build healthier relationships. Client to continue IOP to increase healthy coping skills, challenge distortions, and prevent decompensation. Narrative Note: []
--- NOTE | 2023-06-09 10:10 | BH.SGPN.GN ---
Behaviors/Verbalizations/Mental Status: []Pt alert and oriented, appropriate grooming/appearance. Eye contact fair. Motor activity appropriate. Speech within normal limits. Affect congruent, mood euthymic. Thoughts linear, logical, no signs of hallucinations or delusions. Client Response/Progress/Benefit: []Pt was an engaged participant AEB taking notes, engaging in small group discussion and listening attentively to others. Attentive during psychoeducation. Contributed during interactive discussions in which peers attempted to define crisis. Pt identified some examples of potential crisis. Group also worked together to identify unhealthy responses to crisis which included: isolation, self-harm, substance abuse, avoidance, and lashing out. Pt identified personal warning signs as: apathy, anger outbursts, and overindulge self. Benefited from increased understanding of crisis and awareness of personal responses to crisis. Pt will continue IOP tx to challenge distorted thoughts, increase healthy coping, and prevent decompensation.
--- NOTE | 2023-06-09 11:56 | PCM.BH.PN_ITS ---
Progress Note Progress Note: And history of Present Illness/Interim History: The patient is a 22-year-old single male with a history of depression, anxiety and ADHD who is seen in follow-up at the [facility] IOP program. I last saw the patient about 1 month ago and at that time his Pristiq was increased and me mantine was added to help with his skin picking. The patient feels he is learning valuable skills in the IOP that are helping him deal with his mental health issues. He states that he is less depressed lately and his anxiety is much improved. He still has occasional down times. He denies any panic attacks. His skin picking has vastly improved on the memantine and his hands are healed. He denies passive thoughts of , suicidal ideation, homicidal ideation, hallucinations or delusions. Current Psychiatric Medications: [] Pristiq 100 mg p.o. daily (x1 month at this dose); Wellbutrin SR 150 mg p.o. twice a day (for several years); memantine 20 mg p.o. twice daily (x1 month). Laboratory results from his outpatient provider were received and reviewed in his thyroid function has been checked and was normal. Mental Status Examination: [] The patient is a 22-year-old male within Af[place] who appears normal for stated age and is casually dressed and groomed with good hygiene. He has no psychomotor agitation or retardation and is ambulatory with a normal gait. Eye contact is good and speech is normal rate and rhythm and fluent with no pressure. Mood is depressed. Affect is full and normal. Thought process is goal-directed and organized. Thought content: There is no evidence of passive thoughts of , suicidal ideation, homicidal ideation, plan for suicide, hallucinations or delusions. Patient is pleased with his progress in the program. Reality testing is intact. Intelligence is above average. Judgment is intact. Insight is fair. Diagnoses: [] 1. Major depressive disorder, recurrent, severe without psychosis 2. Generalized anxiety disorder 3. 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 Rule out ADHD 5. Work and primary support issues Plan: [] The patient will continue the IOP program at [facility] as the structure, support, education and group therapy will hopefully prevent worsening of the patient's symptoms. He felt safe during the interview and if it anytime he does not feel safe he will let us know or go to the emergency room. The risks, options, possible complications and side effects of the medications were again discussed with the patient and he understands and accepts these. No medication changes were made today. He will continue to follow-up with his outpatient providers and I will see the patient in follow-up in several weeks.
--- NOTE | 2023-06-09 14:54 | BH.MDN_ITS ---
Multi-Disciplinary Note Note 30-min Individual: Time Started:: 09:17 Date: 06/09/23 Purpose of session/treatment goals addressed:: To review behavior activation goals and discuss ongoing maintenance strategies for managing pt mental health sx. Eye Contact:: Good Motor Activity:: Appropriate Appearance:: Casual Speech:: Appropriate Mood:: Euthymic and Anxious Affect:: Bright Thoughts:: Linear, Logical and No evidence of hallucinations/delusions noted Staff Interventions:: motivational interviewing, CBT techniques, discharge planning and strengths perspective Client Response:: Pt responded well to session, actively engaged, and openly discussed current thoughts, symptoms, and stressors. Pt reports feeling more positive and capable of managing his emotions and daily stressors since beginning the IOP program. Discussed taking the weekend to ?recuperate? and practice self-care. Discussed engaging in several activities he enjoys such as going to the movies, cooking dinner for his family, and riding his bike. Pt expressed plans to continue to regularly ride his bike and would like to consistently go for 3-4 rides a week as he finds this greatly improves his mood. Discussed struggling at times to balance times of being active with spending the entire day isolated. Reported that when he physically is exhausted his sx of depression tend to increase as well. Discussed various strategies pt can use on mornings he feels more tired to help promote engaging in self-care. Reports connecting with morning stretching to get his body moving and release endorphins. Pt set an alarm on his phone to remind him each morning to stretch. Went on to discuss making progress in his personal goal to engage in more meaningful conversations with his supports and has found an increased sense of connection within his interpersonal relationships as a result. Provided insight that a lot of his self-care involves acts of service for others which is often emotionally exhausting for pt. Additionally noted that when he feels he has not met his own expectations for what he was doing for a support pt finds his negative self-talk and internal frustration increases. Reports since recognizing this he has been trying to practice self-compassion and challenging his fixed thoughts but would like to continue to work on this with ongoing therapy as pt is discharging from [facility] tx next week. Pt shared feeling ready to do so but is also anxious about maintaining the gains he has made. Receptive of idea to get involved with a local mental health support group as well as plans to begin the [facility] Aftercare program. Pt plans to research local resources for homework. Risks/Concerns:: None noted. Pt denies any active suicidal ideation, plan, or intent as of this date 06/09/23 Progress Toward Goals/Plan:: Progress noted. Pt reports significant improvement in mood and ability to manage anxiety as well as daily stressors. Pt is actively working with [employer] to pursue employment that fits pt's mental health and educational needs. Pt has been consistently challenging himself to reduce avoidance behaviors and use opposite action to do the anxious thing. As a result, pt has been able to more consistently engage in social settings and reports feeling less isolated and more connected with supports as a result. Pt has followed through with several behavior activation goals and is more consistently engaging in activities he enjoys. Pt does continue to report anxiety regarding upcoming changes with d/c from IOP and beginning employment, negative self-talk, and unrealistic expectations of himself. However, is able to more effectively manage and cope with this symptoms. Give pt progress, he will d/c from IOP treatment next week and continue with his outpatient therapist, Kandis Love, at [place] [id number] as well as begin the [facility] aftercare program. Time Stopped:: 09:50
--- NOTE | 2023-06-11 09:00 | BH.SGPN.GN ---
Behaviors/Verbalizations/Mental Status: []Pt alert and oriented, casually dressed and groomed. Eye contact good. Motor activity appropriate. Speech within normal limits. Affect congruent, mood anxious. Thoughts linear, logical, no signs of hallucinations or delusions. Reviewed pt?s symptom tracker, no risk for suicidal ideation, plan, or intent. Client Response/Progress/Benefit: []Pt responded well to session, receptive to group support. Pt identified mental health positive as contacting college for ADHD accommodations. 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 Stated he has used grounding skills and relaxation skills to manage emotions. Pt stated current stressor as having to reach out to so many people. Pt seemed to benefit from support from group. Pt will continue IOP tx to increase confidence, challenge distortions, and prevent decompensation.
--- NOTE | 2023-06-11 10:05 | BH.SGPN.GN ---
Behaviors/Verbalizations/Mental Status: []Pt alert and oriented, casually dressed and groomed. Eye contact good. Motor activity appropriate. Speech within normal limits. Affect congruent, mood euthymic. Thoughts linear, logical, no signs of hallucinations or delusions. Client Response/Progress/Benefit: [] Pt was an active participant in group discussions and activities. Attentive during psychoeducation. Pt listened during interactive discussion in which the group defined self-care and discussed its benefits. ?Worked with peers in a small group to identify myths related to self-care which included; it takes too much time/money, I don?t deserve it, and it means I?m selfish. Pt participated in small groups where they worked to bust these self-care myths. Benefited from increased awareness of self-care, its benefits, and the consequences of not utilizing self-care strategies. Pt shared he has been trying to use self-care more consistently and it has helped. Will continue IOP tx to promote mood stability, increase self-compassion, and further reduce negative thinking patterns. Narrative Note: []
--- NOTE | 2023-06-11 11:05 | BH.SGPN.GN ---
Behaviors/Verbalizations/Mental Status: []Pt alert and oriented, casually dressed and groomed. Eye contact good. Motor activity appropriate. Speech within normal limits. Affect congruent, mood euthymic. Thoughts linear, logical, no signs of hallucinations or delusions. Client Response/Progress/Benefit: [] Pt engaged participant AEB completing self-assessment worksheet and providing input throughout discussion. Pt completed worksheet identifying current self-care practices and what self-care activities pt wants to start using. Pt selected psychological self-care to begin practicing more consistently. Pt plans to do this by unplugging from electronic devices more often. Appeared to benefit from completing the self-care evaluation and gaining insights into current self-care practices, as well as identifying areas in which pt would like to improve upon.? Pt will continue IOP tx to promote gains, further decrease negative self-talk, and improve self-confidence. Narrative Note: []
--- NOTE | 2023-06-12 09:00 | BH.SGPN.GN ---
Behaviors/Verbalizations/Mental Status: [] Eye contact is good. Motor activity is appropriate. Appearance is casual. Speech is Appropriate. Mood is anxious/irritable. Affect is congruent. Thoughts are linear and logical. No evidence of psychosis. Reviewed daily check in sheet and no reports of suicidal ideations or intent. Client Response/Progress/Benefit: [] Pt was an active participant in group discussions. Attentive. Emotion for today is overwhelmed. Daily symptom tracker notes 11/06 for anxiety and irritability. Pt shared a significant stressor that occurred yesterday. I didn't freak out. Proud of himself for handling the situation and completing all the tasks that he needed to complete. He reports being angry regarding the stressor. Group normalized his emotions. Able to focus on today and not ruminating stating that he made his mother breakfast this AM and attended group. Progress noted as he was able to utilize skills and manage significant stressor. Benefited from group support, encouragement, and feedback. Will continue in IOP to prevent decompensation, increase healthy coping, and to improve functioning. Narrative Note: []
--- NOTE | 2023-06-12 10:10 | BH.SGPN.GN ---
Behaviors/Verbalizations/Mental Status: []Eye contact is good. Alert and oriented. Motor activity is appropriate. Appearance is casual. grooming is appropriate. Speech is Appropriate. Mood is anxious and euthymic. Affect is congruent. Thoughts are linear and logical. No evidence of psychosis or hallucinations. Client Response/Progress/Benefit: []Client was an active participate AEB providing contributions, listening attentively to others, and taking notes throughout. The group identified the impact of emotions on communication such as change in tone, body language, shutting down, misperceiving the communication, and not being able to express oneself. During group activity, client identified feeling anxious and confused, he did well to process with the group. Client did however struggle with insight into how his own behaviors and difficulties following instruction were contributing to increased anxiety in fellow participants. Client benefited from session by gaining an increased understanding on the importance of managing emotions to improve daily functioning. Client will continue IOP to further promote mood stability, improve use of skills for better symptom management, and prevent decompensation. Narrative Note: []
--- NOTE | 2023-06-12 11:10 | BH.SGPN.GN ---
Behaviors/Verbalizations/Mental Status: []Pt alert and oriented, casually dressed and groomed. Eye contact good. Motor activity appropriate. Speech within normal limits. Affect congruent, mood anxious. Thoughts linear, logical, no signs of hallucinations or delusions. Client Response/Progress/Benefit: [] Pt engaged in session AEB Pt listening attentively to peers and providing input. Attentive during psychoeducation on 4 zones of regulation. Pt able to identify feelings and behaviors for each zone. Pt identified coping skills one can use to support self in each zone. Pt reports he believes he used to be in the blue zone majority of the time, but now believes he is more often in the green zone. Reported skills can practice when needs to manage emotions in the blue zone include: timed nap, creative writing, and snuggling his animals. Benefited from increased education on zones of regulation or stages of alertness for emotions and healthy coping skills to use for each zone. Will continue IOP tx to continue use of healthy coping skills, challenge distortions, and prevent decompensation.
--- NOTE | 2023-06-15 09:10 | BH.SGPN.GN ---
Behaviors/Verbalizations/Mental Status: [] Eye contact is good. Motor activity is appropriate. Appearance is casual. Speech is Appropriate. Mood is euthymic. Affect is full. Thoughts are linear and logical. No evidence of psychosis. Reviewed daily check in sheet and no reports of suicidal ideations or intent. Client Response/Progress/Benefit: [] Pt participated at times during the group discussion. Attentive. Emotion for today is fatigued. Identified crisis over the weekend and how he managed it. Elaborated further on the crisis which centered around him being home alone and caring for family pets one of whom had a medical event occur. In the past he reports that he struggles when in stressful situations however was proud of himself for his response. Participated in self-care as well over the weekend. He notes episodes of struggling with regulating his thoughts and anxiety which impacted his functioning and led to isolation/avoidance. Progress noted per pt report due to indpendent functioning and crisis management over the weekend. Benefited from group support, encouragement, and feedback. Will continue in IOP to maintain gains and prevent decompensation. Narrative Note: []
--- NOTE | 2023-06-15 10:20 | BH.SGPN.GN ---
Behaviors/Verbalizations/Mental Status: []Pt alert and oriented, neatly dressed and groomed. Eye contact good. Motor activity appropriate. Speech within normal limits. Affect congruent, mood euthymic. Thoughts linear, logical, no signs of hallucinations or delusions. Client Response/Progress/Benefit: []Pt participated in group discussions. Attentive during psychoeducation on stages of change. Participated during experiential activity. Interactive group discussion on why change is difficult in which group verbalized that change involves the unknown, is scary, leads to uncertainly, makes one feel vulnerable, leads to fear of failure, and triggers the pressure of success. However, pt acknowledged that coming out as part of the LGBTQ community has helped pt feel more authentic and happier and this was a scary change. Benefited from increased awareness of stages of changes and how emotions impact change. Will continue IOP tx for the week and discharge on Thursday. Narrative Note: []
--- NOTE | 2023-06-15 11:20 | BH.SGPN.GN ---
Behaviors/Verbalizations/Mental Status: []Pt alert and oriented, casually dressed and groomed. Eye contact good. Motor activity appropriate. Speech within normal limits. Affect congruent, mood anxious and euthymic. Thoughts linear, logical, no signs of hallucinations or delusions. Client Response/Progress/Benefit: []Pt responded well to session, attentive. Did well to process activity and work with group to relate the strategies used to overcome barriers in the activity to managing change in own life. Pt identified wanting to work on improving his ability to accept his upcoming discharge from IOP tx and maintaining the gains he has made. Shared struggling with self-doubt regarding his ability to maintain this change. Shared following through with this change will improve his mood and personal relationships. Pt identified he can use positive self-talk, breathing, and writing to aid in managing this change. Pt will continue IOP tx to further improve mood stability, promote continued communication with supports, and prevent decompensation. Narrative Note: []
--- NOTE | 2023-06-16 09:01 | BH.SGPN.GN ---
Behaviors/Verbalizations/Mental Status: []Pt alert and oriented, casually dressed and groomed. Eye contact good. Motor activity appropriate. Speech within normal limits. Affect congruent and bright, mood euthymic. Thoughts linear, logical, no signs of hallucinations or delusions. Reviewed pt?s symptom tracker, no suicidal ideation reported, denies plan, or active intent as of 06/16/23. Client Response/Progress/Benefit: []Pt responded well to session, open to processing with group and engaged. Pt reports feeling mildly overwhelmed but managing it this morning. Explained this is related to completing the various things he needs to do to prepare for an upcoming trip to [place] for his grandmother?s memorial. Discussed planning to make cheesecakes for the event as well as bring one to group to celebrate his last day in IOP tx. Identified this as both a win and a stressor as he enjoys baking but feels pressured not to make any mistakes. Pt responded well to group suggestions on managing his stress and breaking the tasks down into more manageable steps. Pt identified his upcoming d/c as a stressor and win as well, explaining fears of not being able to maintain the progress he has made. Pt did well to identify skills he has to prevent decompensation and shared plans to begin the aftercare program as well. Pt appeared to benefit from supportive feedback of the group, as well as reflecting on mental health wins. Pt will continue IOP tx to promote mood stability, improve distress tolerance, and continue to prevent decompensation. Narrative Note: []
--- NOTE | 2023-06-16 10:10 | BH.SGPN.GN ---
Behaviors/Verbalizations/Mental Status: []Pt alert and oriented, casually dressed and groomed. Eye contact good. Motor activity appropriate. Speech tangential at times. Affect congruent, mood euthymic. Thoughts linear, logical, no signs of hallucinations or delusions. Client Response/Progress/Benefit: []Pt receptive of session, actively engaged throughout AEB taking notes and listening to discussion. Appeared to connect with group topic of cognitive distortions and the impact of thought patterns on mental health, coping behaviors, and relationships. Pt reports connecting with distortions of emotional reasoning, labeling, and disqualifying the positives. Pt able to see how continuing to believe these distortions have kept pt stuck in the past, but pt has been doing well with challenging these. Pt appeared to benefit from gaining insight on distorted thinking patterns and how this impacts overall mental health. Will continue IOP tx to increase consistent use of healthy coping and promote mood stability. Narrative Note: []
--- NOTE | 2023-06-16 11:10 | BH.SGPN.GN ---
Behaviors/Verbalizations/Mental Status: [] Eye contact is good. Motor activity is appropriate. Appearance is casual. Speech is Appropriate. Mood is anxious. Affect is congruent. Thoughts are linear and logical. No evidence of psychosis. Client Response/Progress/Benefit: [] Pt was an active participant during group discussions and activity. Pt was placed in a smaller group and participated in quiz-show format in which small groups competed against each-other to answer questions based on identifying, challenging, and reframing cognitive distortions as a way to practice and apply recent psychoeducation. Pt was engaged in her smaller group, participated in group interactions to brainstorm answers, and appeared to be comprehending cognitive distortions. Benefited from gaining further insight and awareness of cognitive distortions as well as practicing ways to reframe and challenge thoughts. Will continue in IOP to prevent decompensation, increase healthy coping skills, and improve functioning. Narrative Note: []
--- NOTE | 2023-06-19 09:00 | BH.SGPN.GN ---
Behaviors/Verbalizations/Mental Status: [] Eye contact is good. Motor activity is appropriate. Appearance is casual. Speech is Appropriate. Mood is euthymic. Affect is full. Thoughts are linear and logical. No evidence of psychosis. Reviewed daily check in sheet and no reports of suicidal ideations or intent. Client Response/Progress/Benefit: [] Pt was an active participant in group discussions. Attentive. Daily symptom tracker notes indicates no distress today. Emotion for today is nervous which he reports is related to today being his last day in IOP level of care. Discussed his progress in IOP reporting that his depression has significantly decreased as did his isolation. Reports being more social and engaged with family. States that he is nervous about leaving the structure and support that he gets from [facility]. It was great way to vent my frustrations. He shared his aftercare plans which include counseling, local [facility] support, and [facility] aftercare here at [facility]. I hope that I don't slip. Shared wins from yesterday which included utilizing several CBT and coping skills to help as he completed tasks which were stressful. I also went into things telling myself that everything was not going to be perfect. Group discussed how setting unrealistic expectations of perfectionist can impact one mentally. Proud that he completed stressful tasks and it wasn't all-consuming. Progress noted since last session and in IOP per pt report. Will be discharged from [facility] today. Narrative Note: []
--- NOTE | 2023-06-19 10:10 | BH.SGPN.GN ---
Behaviors/Verbalizations/Mental Status: [] Eye contact is good. Motor activity is appropriate. Appearance is casual. Speech is Appropriate. Mood is euthymic. Affect is congruent. Thoughts are linear and logical. No evidence of psychosis. Client Response/Progress/Benefit: []Pt engaged participant AEB listening to others, engaging in activity, and providing feedback at times. Attentive during psychoeducation and provided insight into obstacles in the way of mental wellness. Pt shared with group current mental health reality and desired mental health reality. Stated using opposite action as one step he is currently making to get closer to desired reality. Identified barriers to desired reality include: catastrophizing, not practicing skills, fear of retaliation, and constant distractions. Benefited from taking look at current mental health state and obstacles for progress. Pt has made significant treatment progress and will discharge from [facility] today.
--- NOTE | 2023-06-19 11:10 | BH.SGPN.GN ---
Behaviors/Verbalizations/Mental Status: []Eye contact is good. Motor activity is appropriate. Appearance is casual. Speech is Appropriate. Mood is euthymic. Affect is congruent. Thoughts are linear and logical. No evidence of psychosis. Client Response/Progress/Benefit: []Pt was an active participant in group discussions and experiential activity. Attentive during psychoeducation. Patient participated during interactive discussion on strategies to overcome several obstacles to mental wellness including catastrophizing, not practicing healthy coping skills, constant distractions, and lack of energy. Pt choose the barrier of constant distractions to work on this week and identified strategies to incorporate including creating a to-do list and telling my mom about it. Benefited from increased awareness of obstacles to mental wellness and strategies to help overcome those obstacles. Will discharge from IOP tx today as pt has accomplished his tx goals and no longer meets criteria for IOP level of care. Narrative Note: []
--- NOTE | 2023-06-19 14:17 | BH.MDN ---
Multi-Disciplinary Note Note 30-min Individual: Time Started:: 08:31 Date: 06/19/23 Purpose of session/treatment goals addressed:: To process current stressors, discuss aftercare and review healthy coping skills for ongoing maintenance. Eye Contact:: Good Motor Activity:: Appropriate Appearance:: Casual Speech:: Appropriate Mood:: Euthymic and Anxious Affect:: Bright and Congruent Thoughts:: Linear, Logical and No evidence of hallucinations/delusions noted Staff Interventions:: thought challenging, discharge planning, strengths perspective and reviewed DSM-5 Client Response:: Pt responded well to session, open to meeting with therapist. Pt reports plans to attend his grandmother?s [facility] in [place] with his family this weekend. Discussed having some anxiety about the drive and not having much time for himself but feels he has learned the skill he needs to manage it well. Reviewed self-care practices he can engage in on the trip to reduce anxiety or feelings of being ?trapped?. Discussed discharging from treatment today and pt shared his biggest worry is falling back into old patterns of thinking and having more setbacks when he returns to working. 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 Receptive of challenging these thoughts and reviewing skills he can use to prevent decompensation and promote wellness. Discussed plans to create a script with his mother this afternoon and make a few phone calls to set up interviews with potential job developers. Pt given options for additional support groups in his area focusing on mental health and pt will look over the options tonight. Risks/Concerns:: No SI, plan, or intent. No thoughts of as of 06/19/23 Progress Toward Goals/Plan:: Pt continues to make progress in IOP tx and will discharge today due to reaching max treatment benefit. Pt reports his ability to manage various stressors in his day to day and increase socialization with supports has gone very well and he is able to better manage his emotions. Pt is anxious about returning to old, unhelpful habits following d/c so he was receptive to review maintenance skills. Pt was provided options for outpatient support groups and plans to review these with his mother. Pt will begin the Aftercare program next and continue with outpatient counseling and psychiatry services through [place] [id number]. Time Stopped:: 09:00
--- NOTE | 2023-06-19 14:24 | BH.DS ---
Discharge Summary Demographics Date of Admission:: 04/30/23 Discharge Date: 06/19/23 Presenting Problems at Admission:: The patient is a 22-year-old male with a history of depression, anxiety and ADHD who was referred to the [facility] IOP program by his counselor due to worsening depression and anxiety impacting social and occupational functioning. The patient currently lives with his parents and and pets and they get along okay. Pt is in school online to get a bachelor's in writing (creative) and has 2 years left which pt reports is a stressor. Pt reports that he has been struggling to manage occupational stress of his most recent job at [employer] and had an emotional breakdown at work on April 09, 2023 after he was reprimanded at work. Reports unawareness of doing anything wrong in the workplace and felt he was unfairly treated. His biggest stressor currently is difficulty maintaining jobs and has had 3 jobs in the past year. Pt reports feeling like a failure and struggling with negative self-talk ultimately resulting in passive thoughts of driving his car off the road. Denies active plan or intent and reports his family and online friend group as protective factors. He endorses difficulty with social issues/cues and feels he may be autistic, though is not diagnosed. Shared difficulties with socialization has resulted in limited support and difficulties navigating interpersonal relationships. At time of intake, pt endorses depression, sadness, feeling numb, fatigue, worthlessness and guilt, low motivation, decreased concentration, and increased appetite. Reports anxiety with rumination, increased worry, and panic last on April 09. Due to pt sx impacting social, emotional, occupational functioning, pt recommended IOP tx. Discharge Diagnoses:: 1.Major depressive disorder, recurrent, severe without psychosis 2. Generalized anxiety disorder 3. 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 Rule out ADHD Reason for Discharge:: Pt has completed his tx goals AEB pt's self-report of improved functioning and mood as well as his 86% symptom reduction per the DSM-5. Pt will follow up with outpatient therapy through [facility]. Treatment Progress During Treatment & Response: Pt has responded well to treatment as evidenced by Pt consistently attending IOP sessions and his reduction of DSM-5 scores by 86% since admission. Pt was always attentive and receptive to learning during group and individual sessions. Pt has improved his application of coping skills outside of IOP, reports overall his mood is improved, and he is functioning better than he was several months ago. Pt?s overall symptom reduction is 86% since admission with anger decreasing by 100%, depression decreasing by 50%, and anxiety decreasing by 86%. Pt has increased self-compassions, communication with supports and his ability to manage anxiety and increased stress. Pt did well with learning to challenge negative thought patterns. Pt will continue with [facility] for medication management and outpatient counseling. Issues Still to be Addressed:: Pt can benefit from ongoing coping skills maintenance to manage panic and anxiety as well as emotion dysregulation, boundary setting, self-care implementation, challenging negative thoughts, and continuing to communicate in healthy ways with supports. Discharge Recommendations/Instructions:: Pt plans to continue with [facility] for outpatient counseling and medication management. Pt will begin the [facility] Aftercare program on 06/25 as well. Discharge Handout
== END 2023-06-19 12:19 | disposition home or self-care (01) ==
LOC: BHIOP 07:16
PROVIDERS: Referring Provider Psychiatry & Neurology Psychiatry; Visit Provider Psychiatry & Neurology Psychiatry
DX: F31.2 Bipolar disorder, current episode manic severe with psychotic features (principal); F41.1 Generalized anxiety disorder
CPT/HCPCS: S9480; 90832; 90853

== ENCOUNTER 2023-06-25 11:55 | Outpatient (RCR) | payer OTHER, SELFPAY ==
--- NOTE | 2023-08-20 14:00 | BH.SGPN.GN ---
Behaviors/Verbalizations/Mental Status: []Pt alert and oriented, neatly dressed and groomed. Eye contact good. Motor activity appropriate. Speech within normal limits. Affect congruent, mood euthymic. Thoughts linear, logical, no signs of hallucinations or delusions. Client Response/Progress/Benefit: [] Pt responded well to session, Pt reports following through medication management and pt is still looking for a new therapist. Pt reports completing homework from last session which was to bake. Pt also reports using opposite action, positive self-talk, and self-forgiveness this week to cope with symptoms and stressors. Pt engaged well during the discussion of the components of self-compassion. Pt connected with the benefits of self-compassion and participated in the activity of reframing a recent setback using self-compassion. Pt used self-compassion to combat negative self-talk about baking and not being perfect.?Pt appeared to benefit from practicing self-compassion and connecting with peers. Will continue aftercare to promote mood stability and reinforce healthy coping skills.? Narrative Note: []
== END 2023-07-02 23:59 ==
LOC: BHOG 11:55
PROVIDERS: Referring Provider Psychiatry & Neurology Psychiatry; Visit Provider Psychiatry & Neurology Psychiatry
DX: F33.2 Major depressive disorder, recurrent severe without psychotic features (principal); F41.1 Generalized anxiety disorder

== ENCOUNTER 2023-07-03 08:19 | Outpatient (RCR) | payer OTHER, SELFPAY ==
--- NOTE | 2023-07-09 14:00 | BH.COMM ---
Communication Note Communication with Client Communication Note: Patient completed IOP and presents today to start relapse prevention group which meets once weekly (1.5 hours) for 8 weeks. Case discussed with Dr. Winchester with plan to admit with dx of F33.2
--- NOTE | 2023-07-09 14:00 | BH.SGPN.GN ---
Behaviors/Verbalizations/Mental Status: []Pt alert and oriented, casually dressed and groomed. Eye contact good. Motor activity appropriate. Speech within normal limits. Affect congruent, mood euthymic. Thoughts linear, logical, no signs of hallucinations or delusions. Client Response/Progress/Benefit: []Pt receptive of session, engaged throughout. Pt shared he met with his new therapist and pt hopes they will have a good rapport. Pt has been taking his medications consistently and he reports utilizing healthy coping skills outside of aftercare. These skills included: cooking and baking, self-care, and reaching out to supports. Pt reports making a lot of progress with his ED recovery.?Receptive of discussion on sitting with the uncomfortable and emotional urges. Pt contributed to the discussion of distress tolerance and how building distress tolerance can help improve mood stability and resilience. Pt shared he wants to keep building distress tolerance by communicating calmly with his father and sister about his emotions. Pt seemed to benefit from support from peers and increasing understanding of distress tolerance. Will continue IOP aftercare group to maintain gains and reinforce healthy coping skills.? Narrative Note: []
--- NOTE | 2023-07-09 14:36 | BH.MTP_ITS ---
Master Treatment Plan Patient Information Program Physician:: Dr. Jessica Winchester Primary Therapist:: MATHEW [facility] Psych[facility] Diagnoses Psychiatric Diagnoses:: 1.Major depressive disorder, recurrent, severe without psychosis 2. Generalized anxiety disorder 3. 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 Rule out ADHD Diagnosis Code(s):: F33.2 Estimated LOS Estimated LOS (in weeks):: 8 Problem/Goal #1 Problem/Goal #1 Stated Goal:: Client will maintain or see a reduction in symptoms AEB client s core on the DSM 5 cross-cutting measure and improve client's daily functioning. Objectives Objective #1: Stated Objective: Client will continue to consistently apply healthy coping skills to maintain progress made in IOP tx. Interventions: Through group therapy, client will review warning signs and triggers as well as healthy coping skills learned in IOP tx to successfully maintain gains while transitioning into outpatient therapy. Discharge Criteria: Client will have accomplished this goal when client's score on the DSM-5 cross-cutting measure has either maintained or reduced over an 8 week period. Target Date: 09/03/23 Review Date: 08/06/23 Objective #2: Stated Objective: Client will learn and utilize 2-3 maintenance strategies to prevent decompensation from original IOP DSM-5 scores. Interventions: Through group therapy, client will be provided with education on healthy maintenance behaviors, relapse prevention techniques, and healthy coping strategies. Discharge Criteria: Client will have accomplished this goal when can report using at least 2 maintenance skills to prevent decompensation compared to original IOP DSM-5 scores Target Date: 09/03/23 Review Date: 08/06/23
--- NOTE | 2023-07-16 14:00 | BH.SGPN.GN ---
Behaviors/Verbalizations/Mental Status: []Client alert and oriented, casual in appearance. Eye contact good. Motor activity appropriate. Speech within normal limits. Affect congruent. Mood euthymic and anxious. Thoughts linear, logical, no signs of hallucinations or delusions Client Response/Progress/Benefit: [] Pt responded well to session AEB providing input throughout and listening attentively to others. Pt reported meeting their with outpatient counselor tomorrow and had a psychiatry appointment yesterday. Reports taking medications as prescribed. Pt identified several coping skills he has been using over the past week to continue to manage mental health sx, which included: reaching out to supports, writing, opposite action, and taking breaks as needed. Pt connected with self-reflection discussion. Worked with group to identify the benefits of self-reflection. Appeared to benefit from identifying how to incorporate self-reflection into daily life. Pt completed aftercare specific self-reflection activity and indicated he has seen continued progress in giving himself credit for progress, as well as using opposite action but would like to continue to focus on making improvements in regular thought challenging. Pt to continue aftercare to maintain gains and prevent decompensation. Narrative Note: []
--- NOTE | 2023-07-23 14:00 | BH.SGPN.GN ---
Behaviors/Verbalizations/Mental Status: []Pt alert and oriented, casually dressed and groomed. Eye contact good. Motor activity appropriate. Speech within normal limits. Affect congruent, mood euthymic. Thoughts linear, logical, no signs of hallucinations or delusions. Client Response/Progress/Benefit: []Pt responded well to session, attentive and engaged. Pt stated he will see his therapist next week. Reported taking all his medications consistently. Stated he did have an emotional breakdown last week, but was able to recover much faster. Pt identified skills that have helped manage stressors/emotions include: body scan, opposite action, venting emotions, using supports, and challenging negative thoughts. Pt receptive to discussion and reading of the Chapters of My Life handout. Pt able to connect with the chapters and stated belief he is in chapter chapter 3 and 4 which means pt recognizes some of the things he does won't help, but at times struggles with consistently avoiding the unhealthy coping/strategies. Pt shared one step he will take to keep moving forward is to spend more time with his family instead of spending most his time in his bedroom. Pt appeared to benefit from connecting with peers and reflecting on her application of coping skills. Pt will continue IOP aftercare to promote gains made in IOP and reinforce healthy coping skills.
== END 2023-08-01 23:59 ==
LOC: BHOG 08:19
PROVIDERS: Referring Provider Psychiatry & Neurology Psychiatry; Visit Provider Psychiatry & Neurology Psychiatry
DX: F33.2 Major depressive disorder, recurrent severe without psychotic features (principal)
CPT/HCPCS: 90853

== ENCOUNTER 2023-08-03 09:16 | Outpatient (RCR) | payer OTHER, SELFPAY ==
--- NOTE | 2023-08-13 11:55 | BH.TPR ---
Treatment Plan Review Demographics Date of Admission:: 07/09/23 Date of Treatment Plan Review:: 08/06/23 Admitting Diagnoses:: 1.Major depressive disorder, recurrent, severe without psychosis 2. Generalized anxiety disorder 3. 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 Rule out ADHD Current Diagnoses:: 1.Major depressive disorder, recurrent, severe without psychosis 2. Generalized anxiety disorder 3. 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 Rule out ADHD Patient Status Patient's Response to Treatment:: Pt responding well to treatment AEB pt's consistent attendance, active engagement in group discussions, follow up with outpatient providers, and reporting use of skills outside treatment environment. Pt utilizes IOP aftercare to process current stressors, practice giving himself credit for daily accomplishments, continue to work on challenging unrealistic expectations of self, improving interpersonal communication skills, and identify more adaptive coping strategies. Status of Current Problems and Symptoms: Ongoing stressors include maintaining progress made in IOP, stress with school and looking for a job, managing his emotions, and continuing to improve communication within interpersonal relationships. Pt self-reports he has moments of negative thinking, feeling ?overwhelmed with life?, and depression, but it is still manageable and he is consistently utilizing his skills to best manage his symptoms. Progress Problem #1: Problem Name:: Pt will maintain or decrease symptoms from IOP admission data. Status of Goals:: Obj 1 - complete with ongoing work encouraged- Pt has been able to maintain gains made in IOP as pt?s DSM-5 scores are 92% lower than they were at IOP admission. 100% decrease in depressive symptoms and 100% decrease in anxiety when compared to IOP admission scores. Obj 2 - complete with ongoing work encouraged. Pt has been consistently reporting self-care, thought challenging, and using healthy coping skills. He struggles at times with recognizing and challenging thought distortions; however, pt is continuing to make consistent strides in better challenging and replacing these thoughts. Team Recommendations:: Recommended client continue IOP aftercare group to show maintenance of progress. Will continue to encourage client to attend regular outpatient counseling and psychiatry appointments as well.
--- NOTE | 2023-08-13 14:00 | BH.SGPN.GN ---
Behaviors/Verbalizations/Mental Status: []Client alert and oriented, casually dressed and groomed. Eye contact good. Motor activity appropriate. Speech within normal limits. Affect congruent, mood euthymic and anxious. Thoughts linear, logical, no signs of hallucinations or delusions. Client Response/Progress/Benefit: []Receptive of session, engaged throughout. Pt reports he has remained consistent in trying to coordinate outpatient counseling but has not yet been able to schedule. Has been consistent with psychiatry appointments, as well as maintaining medication compliance. Noted use of positive self-talk, [id number] with supports, and doing the anxious thing as coping skills aiding in ongoing mental health maintenance. Engaged and attentive during discussion of vulnerability and benefits of practicing vulnerability. Group discussed ways we avoid feeling vulnerable and how this negatively affects mental health and relationships. Appeared to benefit from group support and discussion reflecting on the positive impact vulnerability can have on mental health. Identified plans to challenge himself to try a new recipe and give it to his mentor to try as a way in which he could practice being vulnerable in the next week. Pt will continue with aftercare tx to maintain gains and prevent decompensation. Narrative Note: []
--- NOTE | 2023-08-24 08:58 | BH.DS ---
Discharge Summary Demographics Date of Admission:: 07/09/23 Discharge Date: 08/20/23 Presenting Problems at Admission:: Client discharged from [facility] tx and transitioned to [facility] aftercare to maintain gains client made in [facility] and to reinforce healthy coping skills. At admission to [facility] aftercare, client reported experiencing mild to moderate symptoms of anxiety and depression. Client was reporting ongoing issues with prioritizing self-care, managing his anxiety related to school and finding a job, navigating interpersonal relationships, and consistently managing daily stressors. Ongoing difficulties in maintaining consistent with emotion regulation skills, communication, as well as challenging distorted thought patterns. Discharge Diagnoses:: 1.Major depressive disorder, recurrent, severe without psychosis 2. Generalized anxiety disorder 3. 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 Rule out ADHD Reason for Discharge:: Pt has completed the aftercare program and has met the maximum benefit of aftercare tx. Pt will continue with outpatient counseling and psychiatry for ongoing maintenance. Treatment Progress During Treatment & Response: Pt did well with attendance and remained active in engagement. Pt contributed well during group discussions, often providing insight and supportive feedback. Pt was able to see a reduction of overall sx from [facility] admission to aftercare discharge of 92%, with a 100% reduction in all areas outside of the measure for sleep quality. Pt reports improved ability to manage daily stressors, communicate with supports without becoming emotionally dysregulated, challenge distorted thought patterns, and make more independent decisions regarding daily living skills. Issues Still to be Addressed:: Distorted thoughts and ongoing issues with emotion regulation, negative self-talk, avoidance, ruminations, difficulty setting boundaries and communicating needs when feeling overwhelmed. Discharge Recommendations/Instructions:: Pt plans to continue with [facility] for outpatient counseling and medication management. Discharge Handout
== END 2023-08-24 08:49 | disposition home or self-care (01) ==
LOC: BHOG 09:16
PROVIDERS: Referring Provider Psychiatry & Neurology Psychiatry; Visit Provider Psychiatry & Neurology Psychiatry
DX: F33.2 Major depressive disorder, recurrent severe without psychotic features (principal); F44.4 Conversion disorder with motor symptom or deficit
CPT/HCPCS: 90853